=== PATIENT | male | born 1935 | race Caucasian/White ===

== ENCOUNTER → 2023-09-12 06:09 | Outpatient (REF) | payer MEDICARE, SELFPAY ==
[2023-09-12 10:13] LABS: ALT (SGPT) 40 U/L (0-50); AST (SGOT) 48 U/L (17-59)
[2023-09-12 10:44] LABS: TSH Reflex To Free T4 2.84 uIU/ml (0.47-4.68)
== END ==
LOC: HWLAB 06:09
PROVIDERS: ATTENDING PHYSICIAN Internal Medicine Cardiovascular Disease; FAMILY PHYSICIAN Family Medicine
DX: Z51.81 Encounter for therapeutic drug level monitoring (principal); I48.0 Paroxysmal atrial fibrillation
CPT/HCPCS: 36415; 71046; 84443; 84450; 84460

== ENCOUNTER → 2023-09-27 09:06 | Outpatient (REF) | payer MEDICARE, SELFPAY | LOC: HWRCS 09:06 | PROVIDERS: ATTENDING PHYSICIAN Internal Medicine Cardiovascular Disease; FAMILY PHYSICIAN Family Medicine | DX: R06.09 Other forms of dyspnea (principal); I35.0 Nonrheumatic aortic (valve) stenosis | CPT/HCPCS: 93306 ==

== ENCOUNTER → 2023-10-24 08:54 | Outpatient (REF) | payer MEDICARE, SELFPAY | LOC: RSP 08:54 | PROVIDERS: ATTENDING PHYSICIAN Internal Medicine Cardiovascular Disease; FAMILY PHYSICIAN Family Medicine | DX: Z51.81 Encounter for therapeutic drug level monitoring (principal); Z79.899 Other long term (current) drug therapy | CPT/HCPCS: 94727; 94729; 88738; 94010 ==

== ENCOUNTER → 2024-02-06 10:50 | Outpatient (REF) | payer MEDICARE, SELFPAY | LOC: HWRAD 10:50 | PROVIDERS: ATTENDING PHYSICIAN Family Medicine | DX: M25.552 Pain in left hip (principal) | CPT/HCPCS: 73502 ==

== ENCOUNTER 2024-03-30 11:22 | Emergency (ER) | payer MEDICARE, SELFPAY ==
[2024-03-30 11:27] VITALS: BP 108/69
--- NOTE | 2024-03-30 11:42 | EDRN ---
Pt states about 2 months ago was diagnosed w/ arthritis in his fit but past 2 days pt has had radiation of his pain down to his L foot from L lower back. Pt states he is also having tingling in his foot. Legs int sore and achy. Pt had cyst removed
in past from L 5.
--- NOTE | 2024-03-30 12:44 | ED.GENMED ---
History of Present Illness
General
Chief Complaint: Back Pain
Time Seen by Provider: 03/30/24 12:44
History of Present Illness
History of Present Illness:
TIME OF INITIAL ENCOUNTER: 12:45 PM
HPI: The patient presents with pain radiating down the left lower extremity. A few months ago, he had issues with plantar fasciitis to the right foot and developed left hip pain and x-ray showed that he had some arthritis of the left hip. He
called [facility] and was told that his symptoms down the left lower extremity are likely more related to the back as opposed to the hip. He has no back pain 'red flags'.
EXAM:
GENERAL: Well appearing in no significant distress
HEENT: Moist oral mucosa
ABDOMEN: Soft with no peritoneal signs, no tenderness
NEUROLOGIC: Excellent strength all extremities, no coordination deficits, excellent strength in an L5 and S1 distribution, no sensory deficit
PSYCHIATRIC: Appropriate mental status, normal insight and judgement
EXTREMITIES: Nontender, no edema, moves all extremities equally
SKIN: No rash, no lesions
NUMBER AND COMPLEXITY OF PROBLEMS ADDRESSED AT THE ENCOUNTER
� Chronic conditions affecting care: Atrial fibrillation, high blood pressure, hyperlipidemia, history of alcohol abuse
� Acute Exacerbation and/or Progression of Chronic Illness: This is an acute problem
� Differential Diagnosis includes: Sciatica, bursitis, osteoarthritis, no evidence for stroke as there is no upper extremity involvement and strength is excellent
AMOUNT AND/OR COMPLEXITY OF DATA TO BE REVIEWED AND ANALYZED
� I performed an independent evaluation of and my interpretation is:
EKG:
CT:
X-rays:
Laboratory Studies:
Other:
� Review of other/old records: I reviewed records, the patient had an echo in 2023 that showed an EF of 40 to 45%
� Clinical information was obtained by an independent historian: None needed
� Prescriptions/Medications Considered but not given:
� Further testing considered but not performed:
RISK OF COMPLICATIONS AND/OR MORBIDITY OR MORTALITY OF PATIENT MANAGEMENT
� Social determinants of health affecting care: Lives at home
� Discussion with other providers:
� Escalation of care including admission/observation vs risk of discharge considered: Will add steroids as I suspect that his symptoms are related to sciatica. Neurologically he is intact with excellent strength in the lower
extremities. He is to follow-up with orthopedics.
ANY OTHER UPDATES:
Past History
Past History
ED Past Medical History: Arrthythmia (Atrial fibrillation), HTN, Hypercholesterolemia, Hypothyroidism and Other (Pacemaker, right bundle branch block)
Social History
Tobacco: Former smoker
Alcohol: Binge drinker
Personal:
Living: with family
Employment: Retired
Family History
Family History: Other
Phy Exam
Physical Exam
Physical Exam:
See HPI
Course
Orders/Labs/Results
Orders:
Orders
03/30/24 13:07
Prednisone [Deltasone] 50 mg PO NOW STA
Vital Signs
Initial and Last Documented VS:
Initial Vital Signs
Temp Pulse Resp BP Pulse Ox
36.5 C 66 16 108/69 100
03/30/24 11:27 03/30/24 11:27 03/30/24 11:27 03/30/24 11:27 03/30/24 11:27
Last Documented Vital Signs
Temp Pulse Resp BP Pulse Ox
36.5 C 66 16 108/69 100
03/30/24 11:27 03/30/24 11:27 03/30/24 11:27 03/30/24 11:27 03/30/24 11:27
*Critical Care Note
Total Time (30-74mins, 75-104mins- exclusive of procedures): Not Applicable
ED Attending Note
-
Portions of this chart may have been created with voice recognition software.� Occasional wrong word or��sound alike� substitutions may have occurred due to the inherent limitations of voice recognition software.
Discharge Plan
Departure
Patient Disposition: Home (Routine Discharge)
Date of Disposition: 03/30/24
Time of Disposition: 13:07
Patient with high blood pressure during this ER visit?: Yes
Discharge Problem:
Sciatica
Instructions: Sciatica (DC)
Prescriptions:
New
prednisone 50 mg tablet
50 mg PO DAILY Qty: 4 0RF
No Action
ferrous sulfate [FeroSul] 325 MG tablet
325 mg PO QPM
fluticasone propionate 1 SPRAY spray,suspension
2 spray intranasal DAILY
acetaminophen 325 MG tablet
325 mg PO Q6HPRN PRN (Reason: mild pain) 0RF
fexofenadine [Manju] 180 MG tablet
180 mg PO DAILYPRN PRN (Reason: allergies )
levothyroxine 100 MCG tablet
75 mcg PO DAILY
garlic 1,000 MG capsule
1,000 mg PO DAILY
fish,bora,flax oils-om3,6,9no1 [Triple [place] 3-6-9] 400 MG capsule
2,000 mg PO BID
amiodarone [Pacerone] 200 MG tablet
200 mg PO QPM
ascorbic acid (vitamin C) [Vitamin C] 500 MG tablet
500 mg PO DAILY
folic acid 1 MG tablet
1 mg PO QPM
calcium carbonate-vitamin D3 [Oyster Shell Calcium-Vit D3] 500 MG tablet
1 tab PO DAILY
vitamin E (dl, acetate) 400 UNITS capsule
400 units PO DAILY
multivitamin with folic acid [Tab-A-Julissa] 1 TABLET tablet
1 tab PO DAILY
apixaban [Eliquis] 5 MG tablet
5 mg PO BID
atorvastatin 40 MG tablet
40 mg PO QPM Qty: 90 3RF
Rx Instructions:
Please note dose increase
clopidogrel 75 MG tablet
75 mg PO DAILY Qty: 90 3RF
pantoprazole 40 MG tablet,delayed release (DR/EC)
40 mg PO DAILY Qty: 90 3RF
aspirin 81 MG tablet,chewable
81 mg PO DAILY 0RF
Rx Instructions:
Take for 1 week ONLY then STOP
nitroglycerin 0.4 MG tablet, sublingual
0.4 mg sublingual [id number] PRN (Reason: chest pain) Qty: 25 2RF
Referrals:
Jose Luis Almendarez MD [Active] -
Bettye Beltre DO [Family Provider] -
Activity Restrictions/Additional Instructions:
Your symptoms very well could be related to sciatica (nerve impingement coming from the low back). We can try steroids. I sent a prescription to the [facility] in [place] on [address]. I recommend you call [facility] again to try to arrange
close follow-up. Next dose of steroids tomorrow.
Interventions
Interventions:
*Risk Screen - Suicide Last Done: 03/30/24 11:44
*General Assessment Last Done: 03/30/24 11:44
*Neglect/Abuse Screening Last Done: 03/30/24 11:44
ED- Fall Risk Assessment Last Done: 03/30/24 11:44
*ED COVID-19 Vaccine History Last Done: 03/30/24 11:44
ED-Musculoskeletal Assessment Last Done: 03/30/24 11:44
Discharge Date and Time
Print Language: VINCENTIAN
[2024-03-30] MEDS: DELTASONE 50 MG PO (13:21)
== END 2024-03-30 13:30 | disposition home or self-care (01) ==
LOC: EMR 11:22
PROVIDERS: EMERGENCY PHYSICIAN Emergency Medicine; FAMILY PHYSICIAN Family Medicine
DX: M54.32 Sciatica, left side (principal); I10 Essential (primary) hypertension; I48.91 Unspecified atrial fibrillation; E78.5 Hyperlipidemia, unspecified; Z87.891 Personal history of nicotine dependence
CPT/HCPCS: 99283

== ENCOUNTER → 2024-05-04 06:08 | Outpatient (REF) | payer MEDICARE, SELFPAY | LOC: HWRAD 06:08 | PROVIDERS: ATTENDING PHYSICIAN Family Medicine | DX: Z95.0 Presence of cardiac pacemaker (principal) | CPT/HCPCS: 71046 ==

== ENCOUNTER → 2024-07-14 06:15 | Outpatient (REF) | payer MEDICARE, OTHER, SELFPAY ==
[2024-07-14 09:33] LABS: Hematocrit 38.1 % (39.0-52.0); Hemoglobin 12.8 g/dL (13.0-18.0); Mean Corp Hgb Conc. 33.6 g/dL (33.0-37.0); Mean Corpuscular Hgb 33.3 pg (27.0-31.0); Mean Corpuscular Volume 99.2 fL (80.0-94.0); Mean Platelet Volume 10.1 fL (7.4-10.4); Platelet Count 239 10^3/uL (130-400); Red Blood Cell Count 3.84 10^6/uL (4.70-6.10); Red Cell Dist. Width 14.5 % (11.5-14.5); White Blood Cell Count 4.4 10^3/uL (4.8-10.8)
[2024-07-14 10:31] LABS: ALT (SGPT) 35 U/L (0-50); AST (SGOT) 43 U/L (17-59); Alkaline Phosphatase 88 U/L (38-126); Blood Urea Nitrogen 24 mg/dl (9-20); Calcium 9.6 mg/dl (8.4-10.2); Carbon Dioxide 29 mmol/L (22-30); Chloride 100 mmol/L (98-107); Glucose 90 mg/dl (70-99); Potassium 4.6 mmol/L (3.5-5.1); Sodium 135 mmol/L (135-145); Total Bilirubin 0.8 mg/dl (0.2-1.3); Total Protein 6.3 g/dl (6.3-8.2); eGFR > 60.00
[2024-07-14 10:54] LABS: TSH Reflex To Free T4 1.04 uIU/ml (0.47-4.68)
== END ==
LOC: HWLAB 06:15
PROVIDERS: ATTENDING PHYSICIAN Internal Medicine Cardiovascular Disease; FAMILY PHYSICIAN Family Medicine
DX: I48.0 Paroxysmal atrial fibrillation (principal); Z51.81 Encounter for therapeutic drug level monitoring
CPT/HCPCS: 36415; 80053; 84443; 85027

== ENCOUNTER → 2024-09-01 13:56 | Outpatient (REF) | payer MEDICARE, OTHER, SELFPAY | LOC: HWRCS 13:56 | PROVIDERS: ATTENDING PHYSICIAN Student in an Organized Health Care Education/Training Program; FAMILY PHYSICIAN Family Medicine; REFERRING PHYSICIAN Internal Medicine Cardiovascular Disease | DX: I50.20 Unspecified systolic (congestive) heart failure (principal) | CPT/HCPCS: 93306 ==

== ENCOUNTER 2024-09-17 20:28 | Inpatient (IN) | payer MEDICARE, OTHER, SELFPAY ==
[2024-09-17] VITALS (12 sets, daily range): BP systolic 151–184; BP diastolic 76–111; PULSE 2; BMI 35.6; BMI 34.4
[2024-09-17 18:48] LABS: % Basophils 0.1 % (0-2); % Immature Granulocytes 0.6 % (0-0.5); % Lymphocytes 20.3 % (20.5-51.1); % Monocytes 7.4 % (1.7-9.3); % Neutrophils 71.6 % (42.2-75.2); Absolute Immature Granulocytes 0.1 10^3/uL (0-0.05); Absolute Lymphocytes 1.9 10^3/uL (1.2-3.4); Absolute Monocytes 0.7 10^3/uL (0.1-0.6); Absolute Neutrophils 6.8 10^3/uL (1.4-6.5); Hematocrit 32.8 % (39.0-52.0); Hemoglobin 10.9 g/dL (13.0-18.0); Mean Corp Hgb Conc. 33.2 g/dL (33.0-37.0); Mean Corpuscular Hgb 33.5 pg (27.0-31.0); Mean Corpuscular Volume 100.9 fL (80.0-94.0); Nucleated Red Blood Cells % 0 % (-); Platelet Count 230 10^3/uL (130-400); Red Blood Cell Count 3.25 10^6/uL (4.70-6.10); Red Cell Dist. Width 15.5 % (11.5-14.5); White Blood Cell Count 9.5 10^3/uL (4.8-10.8)
[2024-09-17 18:57] LABS: INR 1.09; PT 14.7 Sec (11.4-14.6)
[2024-09-17 19:01] LABS: ALT (SGPT) 42 U/L (0-50); AST (SGOT) 41 U/L (17-59); Albumin 4.1 g/dl (3.5-5.0); Alkaline Phosphatase 73 U/L (38-126); Blood Urea Nitrogen 40 mg/dl (9-20); Calcium 9.1 mg/dl (8.4-10.2); Carbon Dioxide 22 mmol/L (22-30); Chloride 102 mmol/L (98-107); Estimated Creatinine Clearance 37 ml/min; Glucose 144 mg/dl (70-99); Potassium 5.2 mmol/L (3.5-5.1); Sodium 132 mmol/L (135-145); Total Protein 6.3 g/dl (6.3-8.2); eGFR 53.17
--- NOTE | 2024-09-17 19:11 | ED.GENMED ---
History of Present Illness
General
Chief Complaint: Breathing Problem
Source: patient and family
Exam Limitations: none
Time Seen by Provider: 09/17/24 18:43
History of Present Illness
History of Present Illness:
88-year-old male progressive shortness of breath since hip surgery on Saturday. Had an outpatient CT scan done earlier today with unknown result. Some mild cough no fever no other complaints. Patient held his Eliquis for the procedure and restarted
it at half dose.
Past History
Past History
ED Past Medical History: Arrthythmia (Atrial fibrillation), HTN, Hypercholesterolemia, Hypothyroidism and Other (Pacemaker, right bundle branch block)
Social History
Tobacco: Former smoker
Alcohol: Binge drinker
Personal:
Living: with family
Employment: Retired
Family History
Family History: Other
Review of Systems
Review of Systems
All Other Systems: Not applicable
Constitutional: Denies fever or chills
Respiratory: Reports trouble breathing
Cardiac: Denies chest pain or syncope
Phy Exam
Physical Exam
Physical Exam:
GENERAL: Alert and oriented. Mildly tachypneic at rest. Borderline pulse ox.
EYE: Orbits normal.
NECK: Supple, no significant adenopathy.
ENT: Pharynx without erythema
CARDIAC: Regular rate and rhythm moderate midsystolic murmur. Pacemaker left upper chest wall
LUNGS: Mild diffuse expiratory wheezing with basilar rales
ABDOMEN: Soft, without focal tenderness or distention
NEUROLOGICAL: Alert and oriented , grossly non-focal
SKIN: Warm and dry, no rash or lesion, no discoloration, skin intact.
MUSCULOSKELETAL: Moderate pitting edema left greater than right. Well-healing left hip
PSYCH: Normal and appropriate interaction.
Scores
Heart Failure Risk
Heart Failure Risk Score: Yes
History of Stroke or TIA: No
History of intubation for respiratory distress: No
Heart rate on ED arrival >/= 110: No
SaO2 <90% on arrival on room air: Yes
HR >/=110 during 3min walk test (or too ill to perform test): Yes
ECG has acute ischemic changes: No
Urea >/=12mmol/L (BUN 33.6mg/dL): Yes
Serum CO2>/=35mmol/L: No
Troponin I or T elevated to SC Level (0.4mg/dL): No
NT-proBNP >/=5,000ng/L (5,000pg/ml): Yes
HF Risk Score: 5
Admission Status: VERY HIGH RISK 39.8% Consider admission to hospital
Course
Orders/Labs/Results
Orders:
Orders
09/17/24 18:40
Electrocardiogram (*1) Urgent
Reason for Study: Chest Pain
EKG- Treatment ONCE
IV Insert/Care/Rem.- Treatment PRN
09/17/24 18:41
Complete Blood Count/With Diff Urgent
Comprehensive Metabolic Panel Urgent
NT-proBNP Urgent
Comment: ADDON
Prothrombin Time Urgent
Troponin I Urgent
09/17/24 18:56
IV Insert/Care/Rem.- Treatment PRN
CR Chest Portable - 1 View Urgent
Comment:
Reason For Exam: sob
Reason Study Needs to be Portable: Patient Unstable
09/17/24 18:57
Add On- LAB Urgent
Tests Added?: probnp
09/17/24 19:16
COVID-19 Antigen Urgent
Source: Nasal Swab
Influenza A+B Rapid Molecular Urgent
MARIELA Source: Nasal Swab
Specimen Description:
09/17/24 19:23
Furosemide [Lasix] 40 mg IV NOW STA
Ipratropium/Albuterol Sulfate [Duoneb] 3 ml INH R NOW ONE
09/17/24 19:37
Bipap [RESP] Urgent
Patient to use own unit?: No
Inspiratory Pressure (cm H2O): 10
Expiratory Pressure (cm H2O): 5
09/17/24 20:16
Admit/Transfer Patient As Directed
Co-Sign Provider:
Level of Care: Inpatient admission
Assign to:: IMU- Intermediate Care
Physician / Group: [email or web address]
Diagnosis: Acute HF proabaly acute decompensated HFrEF
Reason for Hospitalization: Acute HF probably acute decompensated HFrEF :
Expected length of stay greater than two midnights?: Yes
ELOS- Estimated Length of Stay in days: 3
I certify the patient meets the requirements for IP care: Yes
09/17/24 20:19
Code Status As Directed
Resuscitation Status: Full Code
Abnormal Lab Results
09/17/24
18:41
RBC 3.25 L 10^6/uL
(4.70-6.10)
Hgb 10.9 L g/dL
(13.0-18.0)
Hct 32.8 L %
(39.0-52.0)
MCV 100.9 H fL
(80.0-94.0)
MCH 33.5 H pg
(27.0-31.0)
RDW 15.5 H %
(11.5-14.5)
Abs Immat Gran (auto) 0.1 H 10^3/uL
(0-0.05)
Absolute Neuts (auto) 6.8 H 10^3/uL
(1.4-6.5)
Absolute Monos (auto) 0.7 H 10^3/uL
(0.1-0.6)
Immature Gran % 0.6 H %
(0-0.5)
Lymphocytes % 20.3 L %
(20.5-51.1)
PT 14.7 H Sec
(11.4-14.6)
Sodium 132 L mmol/L
(135-145)
Potassium 5.2 H mmol/L
(3.5-5.1)
BUN 40 H mg/dl
(9-20)
Glucose 144 H mg/dl
(70-99)
09/17/24 18:41
09/17/24 18:41
Vital Signs
Initial and Last Documented VS:
Initial Vital Signs
BP
171/98
09/17/24 18:40
Last Documented Vital Signs
Temp Pulse Resp BP Pulse Ox
97.8 F 77 23 165/94 93
09/17/24 18:44 09/17/24 20:00 09/17/24 20:00 09/17/24 20:00 09/17/24 20:00
*Radiology
Radiology exam reviewed: preliminary read by ED provider (CHF)
*EKG
Interpreted by ED Provider?: Yes
Interpretation: abnormal
Comparison EKG: changes noted
Heart Rate: 85
Rate: normal
Rhythm: other (Atrial sensed ventricular paced)
*Layout Inspector Interpretation
Rate: normal
Interpretation: normal
Heart Rate: 88
Rhythm: other (Atrial sensed ventricular paced)
*Critical Care Note
Total Time (30-74mins, 75-104mins- exclusive of procedures): 45
Update Note
Update Note:
1934... Calls placed to the radiology center, [facility]. Our local [facility] orthopedist was phenomenal hunting down the patient's CT scan result. No pulmonary emboli. Pulmonary edema. All consistent with our
clinical findings x-ray and proBNP. Dose of diuretic was given. Discussed with cardiology. Hold on nitroglycerin with moderate . Will add BiPAP
ED Attending Note
-
Portions of this chart may have been created with voice recognition software.� Occasional wrong word or��sound alike� substitutions may have occurred due to the inherent limitations of voice recognition software.
Discharge Plan
Departure
Patient Disposition: Admit
Date of Disposition: 09/17/24
Time of Disposition: 19:31
Presentation/result/management discussed w/ accepting MD/DO: Cardiology
Discharge Problem:
Respiratory distress/pulmonary edema, Recent hip replacement, Moderate aortic stenosis, Known decreased ejection fraction
Interventions
Interventions:
*Risk Screen - Suicide Last Done: 09/17/24 18:44
*General Assessment Last Done: 09/17/24 18:44
*Neglect/Abuse Screening Last Done: 09/17/24 18:44
*ED COVID-19 Vaccine History Last Done: 09/17/24 19:02
ED- Cardiac Assessment Last Done: 09/17/24 19:01
ED- Pulmonary Assessment Last Done: 09/17/24 19:01
[2024-09-17 19:13] LABS: Troponin I 0.023 ng/ml
[2024-09-17 19:21] LABS: NT-proBNP 22900 pg/ml
[2024-09-17] MEDS: LASIX 40 MG IV (19:27)
[2024-09-17] MEDS: DUONEB 3 ML INH (19:27)
[2024-09-17 19:38] LABS: COVID-19 Antigen Negative (Negative)
--- NOTE | 2024-09-17 19:50 | HPS.HSE ---
Family Physician
-
Family Physician:
Chief Complaint
-
acute Resp distress
History of Present Illness
HPI:
88M from home Former smoker, BiB EMS with HX LVEF 35-40% , Prx AF, RBBB, PPM implant, HTN, Hypercholesterolemia, Hypothyroidism arrived to ER for acute Resp distress, tachypneic, POx 92% on RA.
ER Tx:
Pending CXR
Pending proBNP
BiPAP
IV Lasix 40 x 1
DuoNeb x 1
ROS:
Denied CP, palpitation.
Medical History
Past Medical History
Past Medical History: Reports Arrhythmia (Prx AF on chr Eliquis and amiodarone ), HTN, Hypercholesterolemia, Hypothyroidism and Other (Rt BBB, )
Additional Past Medical History:
09/01/24 TTE
Moderately reduced left ventricular systolic function. Global hypokinesis.
Left ventricular ejection fraction is 35-40%.
Stage II diastolic dysfunction suggestive of abnormal relaxation and increased filling pressures.
Moderate mitral regurgitation.
Moderate aortic stenosis. Mild aortic regurgitation.
Past Surgical History: Reports Cardiac (Medtronic PPM implant 05/25/2019.)
Social History
Tobacco: Former Smoker
Alcohol: Binge drinker
Personal:
Living: With Family
Family History
Family History: Not pertinent
Allergies / Home Medications
Allergies reflects when Allergies were last updated in [facility].
Home Medications with original date entered in [facility]
Allergy/Medication List:
Allergies
Allergy/AdvReac Type Severity Reaction Status Date / Time
hydrocodone Allergy TAKEN FROM Verified 09/17/24 18:42
MD ORDER
SHEET
05-22-2019
Penicillins Allergy Unknown Verified 09/17/24 18:42
pollen extracts Allergy sneezing, Verified 09/17/24 18:42
coughing,
runny nose
simvastatin Allergy TAKEN FROM Verified 09/17/24 18:42
MD ORDER
SHEET
05-22-2019
ground spores Allergy asthma Uncoded 09/17/24 18:42
Home Medications
ferrous sulfate 325 mg (65 mg iron) tablet (FeroSul) 325 mg PO QPM Supplement 05/02/18
fluticasone propionate 50 mcg/actuation nasal spray,suspension 2 spray intranasal DAILY Allergies 05/02/18
acetaminophen 325 mg tablet 325 mg PO Q6HPRN PRN mild pain 05/07/18
amiodarone 200 mg tablet (Pacerone) 200 mg PO QPM Atrial fibrillation 05/25/19
fexofenadine 180 mg tablet (Manju) 180 mg PO DAILYPRN PRN allergies 05/25/19
fish,borage,flaxseed oil-omega 3,6,9 no.1 400 mg-400 mg-400 mg capsule (Triple [place] 3-6-9) 2,000 mg PO BID Supplement 05/25/19
garlic 1,000 mg capsule 1,000 mg PO DAILY Supplement 05/25/19
levothyroxine 100 mcg tablet 75 mcg PO DAILY Thyroid 05/25/19
apixaban 5 mg tablet (Eliquis) 5 mg PO BID Blood clot prevention/tx 10/26/19
ascorbic acid (vitamin C) 500 mg tablet (Vitamin C) 500 mg PO DAILY Supplement 10/26/19
calcium 500 mg (as carbonate)-vitamin D3 5 mcg (200 unit) tablet (Oyster Shell Calcium-Vitamin D3) 1 tab PO DAILY Supplement/Bone health 10/26/19
folic acid 1 mg tablet 1 mg PO QPM Supplement 10/26/19
multivitamin with folic acid 400 mcg tablet (Tab-A-Julissa) 1 tab PO DAILY Supplement 10/26/19
vitamin E (dl, acetate) 180 mg (400 unit) capsule 400 units PO DAILY Supplement 10/26/19
aspirin 81 mg chewable tablet 81 mg PO DAILY 10/27/19
atorvastatin 40 mg tablet 40 mg PO QPM #90 tabs 06/30/20
clopidogrell 75 mg tablet 75 mg PO DAILY #90 tabs 10/27/19
nitroglycerin 0.4 mg sublingual tablet 0.4 mg sublingual [id number] PRN chest pain #25 tabs 10/27/19
pantoprazole 40 mg tablet,delayed release 40 mg PO DAILY #90 tabs 10/27/19
prednisone 50 mg tablet 50 mg PO DAILY #4 tabs 03/30/24
Review of Systems
-
Constitutional: Reports No Symptoms
EENT: Reports No Symptoms
Respiratory: Reports See HPI
Cardiac: Reports See HPI
Abdomen/GI: Reports No Symptoms
: Reports No Symptoms
Musculoskeletal: Reports No Symptoms
Skin: Reports No Symptoms
Neurological: Reports No Symptoms
Endocrine: Reports No Symptoms
Hematologic/Lymphatic: Reports No Symptoms
Psych: Reports No Symptoms
Physical Exam
Vital Signs
Vital Signs
Temp Pulse Resp BP Pulse Ox
97.8 F 79 21 172/96 95
09/17/24 18:44 09/17/24 19:30 09/17/24 19:30 09/17/24 19:27 09/17/24 19:30
Physical Exam
General: Well Developed, Well Nourished and No Apparent Distress
HEENT: NormoCephalic, Moist mucous membranes and Atraumatic
Respiratory: Clear
Cardiac: S1/S2 and Regular Rhythm; No Murmur or Rub
GI: Soft, Non Tender, Non Distended and Normal Bowel Sounds; No Organomegaly
Rectal: Deferred by Provider
Musculoskeletal: No Clubbing, No Cyanosis and No Edema
Skin: No Rash
Neuro: Nonfocal/grossly intact
Laboratory Results
-
09/17/24 18:41
09/17/24 18:41
Laboratory Results
PT 14.7 Sec (11.4-14.6) H 09/17/24 18:41
INR 1.09 09/17/24 18:41
Total Bilirubin 1.0 mg/dl (0.2-1.3) 09/17/24 18:41
AST 41 U/L (17-59) 09/17/24 18:41
ALT 42 U/L (0-50) 09/17/24 18:41
Alkaline Phosphatase 73 U/L (38-126) 09/17/24 18:41
Troponin I 0.023 ng/ml 09/17/24 18:41
Impression/Plan
-
Labs
07/14/24 09/17/24
06 18:41
WBC 4.4 L 9.5
Hgb 12.8 L 10.9 L
Plt Count 239 230
INR 1.09
Sodium 132 L
Potassium 5.2 H
BUN 24 H 40 H
Creatinine 1.0 1.3
eGFR > 60.00 53.17
Troponin I 0.023
[id number] Pept [id number]
Portable CXR report pending
Recent CT [facility] from ER record
- No pulmonary emboli.
- Pulmonary edema.
09/01/24 TTE
Moderately reduced left ventricular systolic function. Global hypokinesis.
Left ventricular ejection fraction is 35-40%.
Stage II diastolic dysfunction suggestive of abnormal relaxation and increased filling pressures.
Moderate mitral regurgitation.
Moderate aortic stenosis. Mild aortic regurgitation.
Compared to the prior echo on 09/27/2023, LVEF is slightly decreased from 40 to
45% to 35 to 40%. There is now moderate mitral regurgitation.
Last admission to [facility] card service : 05/25/2019 - 05/26/2019
DISCHARGE DIAGNOSIS:
1. 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
2. 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
3. Right bundle branch block.
4. Paroxysmal atrial fibrillation on chronic oral anticoagulation.
5. Hypertension.
6. Hypothyroidism.
7. Hyperlipidemia.
ASSESSMENT & PLAN
Acute HF probably acute decompensated HFrEF : elevated proBNP - improved with IV Lasix and BiPAP
Patient is unsure of prior HX CHF
Suspect expanded Volume s/p Lt THR as of 09/13/24
Recent TTE LVEF 35-40 as of 09/01/24
Underlying Stage II diastolic dysfunction s
Valvular insufficiency : Moderate MR, Moderate , Mild AR
- c/w BiPAP - wean off as tolerated
- IV Lasix 40 daily
- FU daily BMP, wt and IOs
- c/w COIL MACHINE SUPERVISOR Metoprolol XL 25 mg daily
- GDMT : on Empagliflozin
- CBC Card consult ( P Card : Dr Leach )
Recent Lt THR as of 09/13/[address] [facility] , [facility]
- PT when acute HF is stable
Atrial-sensed ventricular-paced rhythm
HX Paroxysmal atrial fibrillation
- on [employer]IL MACHINE SUPERVISOR chronic Eliquis and Amiodarone
Benign Hypertension.
- c/w Metoprolol XL
Hypothyroidism
- on COIL MACHINE SUPERVISOR LT4
Hyperlipidemia
- on COIL MACHINE SUPERVISOR Atorvastatin
DVT Px: on COIL MACHINE SUPERVISOR Eliquis
Full code
IP TLM
--- NOTE | 2024-09-17 23:01 | PTCARENOTE ---
Rec'd pt as new admission from ED RN. Pt arrived to unit on 2L NC, denies SOB, SaO2 98%. Denies pain, discomfort at this time. BP elevated 178/93 on RUE. ORCHESTRATOR contacted regarding HTN. Educated pt on use of call aponte. Pt admits to daily alcohol use
with last drink yesterday 09/16, ORCHESTRATOR notified, MSAS score 2 at this time. Care ongoing.
[2024-09-18] VITALS (17 sets, daily range): BP systolic 109–176; BP diastolic 56–91; PULSE 2–85; O2SAT 98; BMI 34.4
[2024-09-18] MEDS: SYNTHROID 75 MCG PO (04:57)
[2024-09-18 05:35] LABS: ALT (SGPT) 39 U/L (0-50); AST (SGOT) 36 U/L (17-59); Albumin 3.8 g/dl (3.5-5.0); Alkaline Phosphatase 67 U/L (38-126); Blood Urea Nitrogen 39 mg/dl (9-20); Calcium 9.5 mg/dl (8.4-10.2); Carbon Dioxide 30 mmol/L (22-30); Chloride 103 mmol/L (98-107); Estimated Creatinine Clearance 39 ml/min; Glucose 103 mg/dl (70-99); Potassium 4.5 mmol/L (3.5-5.1); Sodium 136 mmol/L (135-145); Total Bilirubin 0.9 mg/dl (0.2-1.3); eGFR 58.53
--- NOTE | 2024-09-18 08:07 | CON.CAR ---
Addendum entered and electronically signed by Christiano Aleman MD 09/18/24 10:32:
I saw and examined the patient.
The NANOFABRICATION SPECIALIST's note was reviewed and I agree with the note.
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
in 2019, PAF who presented to the ER with shortness of breath and he also has increased lower extremity edema he recently had hip surgery and states he noticed more issues with shortness of breath since the surgery. Presentation consistent with
acute on chronic heart failure with reduced ejection fraction. Appears to be in sinus rhythm. Apparently in the past GDMT limited by blood pressure.
- Diuresis with IV Lasix with close monitoring of labs and blood pressure
- Monitor daily weights.
-Remains on anticoagulation with Eliquis for history of A-fib
-Continue amiodarone
- Will need standing dose of diuretic at discharge.
Original Note:
Consultation
Consultation Request
Date/Time Consultation Requested: 09/17/24 9:50p
Date/Time Consultation Performed: 09/18/24 8a
Requesting Provider: Dr. Jorge
Performing Provider: EVELYN Mccray for Dr. Aleman
Reason for Consultation: acute HFrEF
Medical History
-
Chief Complaint: sob
History of Present Illness:
Mr. Thompson is an 88-year-old male with paroxysmal atrial fibrillation on Eliquis, hypertension, HFrEF (35-40%), moderate aortic stenosis with mild aortic regurgitation, moderate mitral regurgitation, s/p Medtronic dual chamber permanent pacemaker
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 His CXR shows acute pulmonary edema, proBNP 22,900, so we are consulted for acute HFrEF. He
underwent left LIDIA at [facility] 09/14/24 and was discharged home 09/15/24. He is not on diuretics at home. SOB improved with IV Lasix 40mg daily last night and now on Bipap as well. Device interrogation showed 100% ventricular pacing [facility] in the ER 09/17/24.
Past Medical History
Past Medical History: Other (as above)
Past Surgical History: Other (as above)
Social History
Tobacco: Former Smoker
Alcohol: Former (quit 2017)
Personal:
Living: With Family
Employment: Retired
Family History
Family History: Early CAD (father age 52 ?CAD)
Allergies / Home Medications
Allergy/AdvReac Type Severity Reaction Status Date / Time
hydrocodone Allergy TAKEN FROM Verified 09/17/24 18:42
MD ORDER
SHEET
05-22-2019
Penicillins Allergy Unknown Verified 09/17/24 18:42
pollen extracts Allergy sneezing, Verified 09/17/24 18:42
coughing,
runny nose
simvastatin Allergy TAKEN FROM Verified 09/17/24 18:42
MD ORDER
SHEET
05-22-2019
ground spores Allergy asthma Uncoded 09/17/24 18:42
�Medication �Instructions �Recorded �Confirmed �Type
amiodarone 200 mg tablet (Pacerone) 200 mg PO QPM Atrial fibrillation 05/25/19 09/17/24 History
apixaban 5 mg tablet (Eliquis) 5 mg PO BID Blood clot 10/26/19 09/17/24 History
prevention/tx
atorvastatin 40 mg tablet 40 mg PO QPM #90 tabs 10/27/19 09/17/24 Rx
pantoprazole 40 mg tablet,delayed 40 mg PO DAILY #90 tabs 10/27/19 09/17/24 Rx
release
acetaminophen 500 mg tablet 1,000 mg PO TID 09/17/24 09/17/24 History
(Tylenol Extra Strength)
celecoxib 200 mg capsule 200 mg PO DAILY 09/17/24 09/17/24 History
empagliflozin 25 mg tablet 12.5 mg PO DAILY 09/17/24 09/17/24 History
levothyroxine 75 mcg tablet 75 mcg PO DAILY 09/17/24 09/17/24 History
(Synthroid)
methylprednisolone 4 mg tablets in 0 mg PO PER PKG DIR 09/17/24 09/17/24 History
a dose pack (Medrol (Twan))
metoprolol succinate 25 mg 25 mg PO DAILY 09/17/24 09/17/24 History
tablet,extended release 24 hr
(Toprol XL)
oxycodone 5 mg tablet 5 mg PO Q4HPRN PRN severe pains 09/17/24 09/17/24 History
Review of Systems
-
History Source: Patient
All other systems: Negative unless noted
Physical Exam
Vital Signs
Temp Pulse Resp BP Pulse Ox
97.7 F 84 22 155/85 96
09/18/24 03:00 09/18/24 06:15 09/18/24 06:15 09/18/24 06:15 09/18/24 06:00
Lab Results
09/17/24 18:41
09/18/24 04:53
Troponin I 0.023 ng/ml 09/17/24 18:41
Idn-C-Viqywfxspvk Pept 94080 pg/ml 09/17/24 18:41
Physical Exam
General: Well Developed and Other (obese)
HEENT: Normocephalic
Respiratory: Crackles (bibasilar) and Other (on bipap)
Cardiac: S1/S2, Regular Rhythm and Peripheral Edema (+1-2 pitting edema b/l LE)
Breast: Deferred by me
GI: Soft, Non Tender, Non Distended and Normal Bowel Sounds
Rectal: Deferred by Provider
Genito-urinary: No Costovertebral Tender
Musculoskeletal: No Clubbing and No Cyanosis
Skin: Warm and Dry
Neuro: AO x 3
Psych: Calm
Impression / Plan
-
HFrEF - acute on chronic.
- agree with diuresis IV Lasix.
- monitor renal function, lytes, daily weights, I&Os.
- weight on admit 188 lbs (10-12 lbs more than typical weight), down to 181 today.
- HF educator.
ICM - EF 35-40% on echo 09/01/24.
- IV diuresis as above, monitoring labs and daily weights.
- tolerating Toprol and Farxiga, previously GDMT limited by hypotension.
- will investigate cost of Entresto.
- likely need diuretics at discharge.
CAD - stable w/o angina.
- s/p PCI with MITZI to RCA in 09/2019.
- continue medical therapy.
Afib - paroxysmal.
- V paced on tele and device checks, no Afib.
- continue Amiodarone and Toprol.
- OAC with Eliquis.
- [id number] VASC score is 5.
PPM - DC Medtronic device.
- stable with normal function, V paced.
- followed in our outpatient device clinic.
Valvular heart disease - moderate , moderate MR, mild AR on echo 09/01/24.
- diuresis as above.
Data Reviewed
-
EKG: Tracing Personally Visualized and interpreted (A sensed V paced 85 bpm)
Radiology: Report Reviewed by me (CXR: Interval development of diffusely increased interstitial markings, highly suggestive of interstitial pulmonary edema pattern.)
Medical Tests (Nuc Med, Echo etc): Report Reviewed by me (echo 09/01/24: EF 35-40%, moderate , mild AR, moderate MR.)
Labs: Labs Reviewed by me
Old Records: Reviewed
[2024-09-18] MEDS: LASIX 40 MG IV (09:12)
[2024-09-18] MEDS: TOPROL XL 25 MG PO (09:13)
[2024-09-18] MEDS: FARXIGA 10 MG PO (09:13)
[2024-09-18] MEDS: ELIQUIS 5 MG PO ×2 (09:13→19:35)
[2024-09-18] MEDS: PROTONIX 40 MG PO (09:14)
--- NOTE | 2024-09-18 11:12 | CM ---
Met with patient at bedside; initial assessment and Case Management Consults completed
Advance Directive packet provided; patient reported that he was prescribed Entresto in the past; had a reaction and discontinued; [facility]; out of pocket cost for Entresto was $11.00
Pharmacy verified: [facility], [facility]; continuous prescriptions filled by [place] (copy of [facility] card placed on the chart)
Patient and live in a one floor home; 4 steps to enter; bath has low tub w/shower
PLOF: reported he is independent with personal care; ambulates with rolling walker; has a cane if needed in the future; driving currently restricted
NO other DME
NO SNF or Home Health utilization history; no agency preference if home health is recommended when discharged; does not think he will need HH
will transport home
Plan: Discharge to home when medically stable; CM will monitor for needs/services and support accordingly
--- NOTE | 2024-09-18 11:46 | W.PN.HOSP.TC ---
Today's Communication/Plan
-
Continue with aggressive diuresis
Monitor blood pressure
Monitor creatinine
Wean oxygen as tolerated
PT evaluation
Assessment / Plan
Assessment / Plan
Acute on chronic HFrEF
Valvular disease with moderate aortic stenosis and mitral regurgitation
Suspect expanded Volume s/p Lt THR as of 09/13/24
Recent TTE LVEF 35-40 as of 09/01/24
- c/w BiPAP as needed if needed
- IV Lasix 40 daily
- FU daily BMP, wt and IOs
- c/w EGG SORTER Metoprolol XL 25 mg daily
- GDMT : on Empagliflozin
-Probably will require diuretics standing dose at discharge
- cardiology following
CAD
-Status post MITZI to RCA
-Continue with goal-directed medical therapy
Recent Lt THR as of 09/13/24 @ [facility] , [facility]
- PT eval. On Eliquis for DVT prophylaxis
Paroxysmal atrial fibrillation status post pacemaker
- on EGG SORTER chronic Eliquis and Amiodarone
- Status post interrogation with normal function per cardiology
Benign Hypertension.
- c/w Metoprolol XL
Hypothyroidism
- on EGG SORTER LT4
Hyperlipidemia
- on EGG SORTER Atorvastatin
DVT Px: on EGG SORTER Eliquis
Full code
Anticipated Discharge: > 48 hours
Subjective/Interval History
-
Date of Service: September 18, 2024
States of shortness of breath
States of worsening lower extremity edema
Taken off BiPAP and currently on nasal cannula
Objective Data
-
Labs:
Laboratory Results
09/18/24
04:53
Sodium 136
Potassium 4.5
Chloride 103
Carbon Dioxide 30
BUN 39 H
Creatinine 1.2
Glucose 103 H
Calcium 9.5
Total Bilirubin 0.9
AST 36
ALT 39
Alkaline Phosphatase 67
Vital Signs:
Vital Signs
Temp Pulse Resp BP Pulse Ox
98.1 F 86 24 155/68 98
09/18/24 07:18 09/18/24 10:46 09/18/24 10:46 09/18/24 10:46 09/18/24 11:28
I&O
09/17/24 09/18/24 09/19/24
06:59 06:59 06:59
Output Total 1949
Balance -1949
Physical Exam
-
General: Well Developed and No Apparent Distress
HEENT: Normocephalic, Atraumatic and Moist Mucous Membranes
Respiratory: Clear to Auscultation
Cardiac: Regular Rhythm and S1/S2; Negative Murmur, Rub or Gallop
GI: Soft, Nontender, Nondistended and Normal Bowel Sounds; Negative Organomegaly
Rectal: Deferred by Provider
Musculoskeletal: No Clubbing, No Cyanosis, Edema, Right Lower Extrem, Edema, Left Lower Extrem and Other (Left hip Aquacel dressing noted)
Skin: Negative Rash
Neuro: Awake and Nonfocal/Grossly Intact
Psych: Calm
--- NOTE | 2024-09-18 12:05 | PN.CDI ---
CDI
- -
CDI:
Physician Documentation Request
Admit Date: 09/17/24 20:28
Dear Doctor Tanja,
Patient presented to ED with progressive shortness of breath.
Patient was on bipap.
ED record discharge problem list 'respiratory distress'
Presenting respiratory rate documented between 17-16
Please clarify which of the following accurately represents the patient's respiratory status:
Acute respiratory failure- please indicate type
Hypoxia
Other
Additional information for Respiratory Failure:
Recognized criteria for Respiratory Failure (Source: [facility] Hospitalist Feb 2013)
ABGs: (1 or more) Symptoms Please indicate type if known
1. p)2 <60 or RA SPO2 <91% on RA 1. Tachypnea, SOB, dyspnea Hypoxic
2. pCO2 50 and pH <7.35 2. Use of accessory muscles Hypercapnic
3. pO2 decrease of pCO2 increase by 3. Pallor or cyanosis Hypoxic and Hypercapnic
10 mmHg from baseline if known 4. Anxiety or restlessness Unable to determine
5. Unable to speak in full sentences
Supplemental O2 of > 40% (5LPM) Intubation is not required
Use of terms such as suspected, likely, concern for, or probable (associated with a specific diagnosis that is being evaluated, monitored, or treated as if it exists) are acceptable and can be coded in the inpatient setting, when documented at the
time of discharge.
Thank you,
Karlene Farris RN, BSN
CDI Specialist
tiger text
Please use your independent medical judgment in providing your response.
--- NOTE | 2024-09-18 12:09 | PN.CDI ---
CDI
- -
CDI:
Physician Documentation Request
Admit Date: 09/17/24 20:28
Dear Doctor Tanja,
Patient admitted with heart failure.
Sodium results
Laboratory Tests
09/17/24 09/18/24
18:41 04:53
Sodium 132 L 136
Could you please provide a diagnosis that supports the above lab abnormalities and additional evaluation, monitoring:
Hyponatremia
Abnormal lab value clinically insignificant
Other
Use of terms such as suspected, likely, concern for, or probable (associated with a specific diagnosis that is being evaluated, monitored, or treated as if it exists) are acceptable and can be coded in the inpatient setting, when documented at the
time of discharge.
Thank you,
Karlene Farris RN, BSN
CDI Specialist
tiger text
Please use your independent medical judgment in providing your response.
--- NOTE | 2024-09-18 15:00 | PTCARENOTE ---
Patient wore CPAP briefly this morning, currently he is on 2L via n/c. Pulse ox mid to upper 90's. Patient reports that his breathing is much better. Occasional dry cough noted. Left hip dressing intact, ecchymosis around the left hip. Pain is
minimal he did not want any tylenol. Ice pack applied to left hip intermittently during the day. Patient ambulated to chair and bathroom with assistance x1. Using urinal independently. VS stable. V-paced on monitor.
[2024-09-18] MEDS: PACERONE 200 MG PO (17:43)
[2024-09-18] MEDS: LIPITOR 40 MG PO (19:13)
[2024-09-18] MEDS: TYLENOL 650 MG PO (21:23)
--- NOTE | 2024-09-18 21:25 | PTCARENOTE ---
Pt alert, oriented. Requested PRN tylenol for mild L hip pain. Dressing remains intact. Pt able to ambulate to bathroom and back with assistx1. Denies SOB on 2L NC, SaO2 100% at rest. Call aponte within reach. Care ongoing.
[2024-09-19] VITALS (8 sets, daily range): BP systolic 106–146; BP diastolic 54–70; BMI 33.2
[2024-09-19] MEDS: SYNTHROID 75 MCG PO (05:50)
[2024-09-19 08:24] LABS: Blood Urea Nitrogen 42 mg/dl (9-20); Carbon Dioxide 29 mmol/L (22-30); Chloride 102 mmol/L (98-107); Estimated Creatinine Clearance 39 ml/min; Glucose 85 mg/dl (70-99); Sodium 135 mmol/L (135-145); eGFR 58.53
[2024-09-19] MEDS: TOPROL XL 25 MG PO (08:41)
[2024-09-19] MEDS: PROTONIX 40 MG PO (08:41)
[2024-09-19] MEDS: LASIX 40 MG IV (08:41)
[2024-09-19] MEDS: FARXIGA 10 MG PO (08:41)
[2024-09-19] MEDS: ELIQUIS 5 MG PO ×2 (08:41→19:28)
--- NOTE | 2024-09-19 10:34 | W.PN.CD ---
Addendum entered and electronically signed by Christiano Aleman MD 09/19/24 11:22:
I saw and examined the patient.
The HARVEST MANAGER's note was reviewed and I agree with the note.
Appears comfortable and sitting in chair. Respiratory status appears stable. Still with significant edema on exam. Based on I's and O's appears to be having good response to diuretics. Weights need to be updated.
Continue IV diuresis
Monitor labs,I's/O's and daily weights.
Original Note:
Today's Communication / Plan
-
-continue IV diuresis and monitoring
Impression / Plan
-
HFrEF - acute on chronic.
- continue IV lasix, which requires intensive monitoring- will need lasix at d/c
- weight on admit 188 lbs (10-12 lbs more than typical weight). No weight for today - placed order for daily weights. Still with BLE edema.
- HF educator.
ICM - EF 35-40% on echo 09/01/24.
- volume plan as above
- tolerating Toprol and Farxiga, previously GDMT limited by hypotension.
CAD - stable w/o angina.
- s/p PCI with MITZI to RCA in 09/2019.
- continue medical therapy.
Afib - paroxysmal.
- V paced on tele and device checks, no Afib.
- continue Amiodarone and Toprol.
- OAC with Eliquis.
- [id number] VASC score is 5.
PPM - DC Medtronic device.
- stable with normal function, V paced.
- followed in our outpatient device clinic.
Valvular heart disease - moderate , moderate MR, mild AR on echo 09/01/24.
- diuresis as above.
-needs to be monitored over time by echo
Physical Exam
Vital Signs/Labs
Vital Signs
Temp Pulse Resp BP Pulse Ox
98.2 F 80 32 114/58 100
09/19/24 07:00 09/19/24 08:47 09/19/24 08:00 09/19/24 08:47 09/19/24 09:22
09/18/24 09/19/24 09/20/24
06:59 06:59 06:59
Actual Weight 82.5 kg
09/17/24 18:41
09/19/24 05:57
PT 14.7 Sec (11.4-14.6) H 09/17/24 18:41
INR 1.09 09/17/24 18:41
09/17/24
18:41
Yed-J-Wtgsktugdbl Pept [id number]
LAB Results
09/17/24
18:41
Troponin I 0.023
Physical Exam
Constitutional: No acute distress
EENT: Anicteric
Cardiovascular: Rhythm & rate is regular and Pedal edema present (mild BLE edema)
Respiratory: Respiratory effort normal and Lungs clear to auscul.
Neuro/Psych: AO x 3
Data Reviewed
-
Date of Service: September 19, 2024
EKG: Other (VPACED)
Labs: Labs Reviewed by me
--- NOTE | 2024-09-19 11:13 | W.PN.HOSP.TC ---
Today's Communication/Plan
-
tx to tele
IV lasix
trend cr/bp
Assessment / Plan
Assessment / Plan
Acute on chronic HFrEF
Valvular disease with moderate aortic stenosis and mitral regurgitation
Suspect expanded Volume s/p Lt THR as of 09/13/24
Recent TTE LVEF 35-40 as of 09/01/24
Acute hypoxic respiratory failure
- c/w BiPAP as needed if needed
- IV Lasix 40 daily. May need to increase dose.
- FU daily BMP, wt and IOs
- c/w MICROBIOLOGICAL LAB TECHNICIAN Metoprolol XL 25 mg daily
- GDMT : on Empagliflozin
- Daily weight
- Probably will require diuretics standing dose at discharge
- cardiology following
CAD
-Status post MITZI to RCA
-Continue with goal-directed medical therapy
Recent Lt THR as of 09/13/24 @ [facility] , [facility]
- PT eval. On Eliquis for DVT prophylaxis
Paroxysmal atrial fibrillation status post pacemaker
- on MICROBIOLOGICAL LAB TECHNICIAN chronic Eliquis and Amiodarone
- Status post interrogation with normal function per cardiology
Benign Hypertension.
- c/w Metoprolol XL
Hypothyroidism
- on MICROBIOLOGICAL LAB TECHNICIAN LT4
Hyperlipidemia
- on MICROBIOLOGICAL LAB TECHNICIAN Atorvastatin
Mild hyponatremia resolved
DVT Px: on MICROBIOLOGICAL LAB TECHNICIAN Eliquis
Full code
Anticipated Discharge: > 48 hours
Subjective/Interval History
-
Date of Service: September 19, 2024
Did not require usage of BiPAP yesterday and overnight
States he was just taken off oxygen
Objective Data
-
Labs:
Laboratory Results
09/19/24
05:57
Sodium 135
Potassium 4.0
Chloride 102
Carbon Dioxide 29
BUN 42 H
Creatinine 1.2
Glucose 85
Calcium 9.0
Vital Signs:
Vital Signs
Temp Pulse Resp BP Pulse Ox
98.2 F 80 32 114/58 100
09/19/24 07:00 09/19/24 08:47 09/19/24 08:00 09/19/24 08:47 09/19/24 09:22
I&O
09/18/24 09/19/24 09/20/24
06:59 06:59 06:59
Intake Total 925 / 925 300 / 300
Output Total 1949 1130 / 1130
Balance -1949 - / 300 / 300
Physical Exam
-
General: Well Developed and No Apparent Distress
HEENT: Normocephalic, Atraumatic and Moist Mucous Membranes
Respiratory: Clear to Auscultation
Cardiac: Regular Rhythm and S1/S2; Negative Murmur, Rub or Gallop
GI: Soft, Nontender, Nondistended and Normal Bowel Sounds; Negative Organomegaly
Rectal: Deferred by Provider
Musculoskeletal: No Clubbing, No Cyanosis, Edema, Right Lower Extrem (2+ pitting), Edema, Left Lower Extrem (2+ pitting) and Other (Left hip Aquacel dressing noted)
Skin: Negative Rash
Neuro: Awake, Alert and Nonfocal/Grossly Intact
Psych: Calm
--- NOTE | 2024-09-19 14:16 | PTCARENOTE ---
Received pt from IMU into room 410-2. Pt ambulatory with stand by/ x1 assistance. Educated pt to call before getting up. Pt verbalizes understanding. Weight obtained and documented. Ice pack provided for L hip. Oriented to room. Pt OOB to chair,
call aponte within reach, no complaints at this time.
[2024-09-19] MEDS: LIPITOR 40 MG PO (17:36)
[2024-09-19] MEDS: PACERONE 200 MG PO (17:36)
[2024-09-19] MEDS: TYLENOL 650 MG PO (21:17)
[2024-09-20 03:55] VITALS: BP 122/78
[2024-09-20] MEDS: SYNTHROID 75 MCG PO (04:54)
[2024-09-20 05:00] VITALS: BMI 32.8
[2024-09-20] MEDS: TYLENOL 650 MG PO (05:47)
[2024-09-20 06:57] LABS: Blood Urea Nitrogen 41 mg/dl (9-20); Calcium 9.2 mg/dl (8.4-10.2); Carbon Dioxide 31 mmol/L (22-30); Chloride 102 mmol/L (98-107); Estimated Creatinine Clearance 39 ml/min; Glucose 94 mg/dl (70-99); Potassium 3.6 mmol/L (3.5-5.1); Sodium 138 mmol/L (135-145); eGFR 58.53
[2024-09-20 07:11] VITALS: BP 111/73
[2024-09-20] MEDS: ELIQUIS 5 MG PO (09:11)
[2024-09-20] MEDS: TOPROL XL 25 MG PO (09:11)
[2024-09-20] MEDS: PROTONIX 40 MG PO (09:11)
[2024-09-20] MEDS: FARXIGA 10 MG PO (09:11)
[2024-09-20] MEDS: LASIX 40 MG IV (09:12)
--- NOTE | 2024-09-20 10:42 | W.PN.HOSP.TC ---
Today's Communication/Plan
-
IV lasix
cont diuresis
trend cr-holding so far
Assessment / Plan
Assessment / Plan
Acute on chronic HFrEF
Valvular disease with moderate aortic stenosis and mitral regurgitation
Suspect expanded Volume s/p Lt THR as of 09/13/24
Recent TTE LVEF 35-40 as of 09/01/24
Acute hypoxic respiratory failure
- c/w BiPAP as needed if needed
- IV Lasix 40 daily. May need to increase dose.
- FU daily BMP, wt and IOs
- c/w STRAND FORMING MACHINE OPERATOR Metoprolol XL 25 mg daily
- GDMT : on Empagliflozin
- Daily weight. Lost around 2lbs in 24h.
- Probably will require diuretics standing dose at discharge
- cardiology following
CAD
-Status post MITZI to RCA
-Continue with goal-directed medical therapy
Recent Lt THR as of 09/13/24 @ [facility] , [facility]
- PT eval. On Eliquis for DVT prophylaxis
Paroxysmal atrial fibrillation status post pacemaker
- on STRAND FORMING MACHINE OPERATOR chronic Eliquis and Amiodarone
- Status post interrogation with normal function per cardiology
Benign Hypertension.
- c/w Metoprolol XL
Hypothyroidism
- on STRAND FORMING MACHINE OPERATOR LT4
Hyperlipidemia
- on STRAND FORMING MACHINE OPERATOR Atorvastatin
Mild hyponatremia resolved
DVT Px: on STRAND FORMING MACHINE OPERATOR Eliquis
Full code
Anticipated Discharge: 24 - 48 hours
Subjective/Interval History
-
Date of Service: September 20, 2024
States significant improvement in breathing
Objective Data
-
Labs:
Laboratory Results
09/20/24
05:54
Sodium 138
Potassium 3.6
Chloride 102
Carbon Dioxide 31 H
BUN 41 H
Creatinine 1.2
Glucose 94
Calcium 9.2
Vital Signs:
Vital Signs
Temp Pulse Resp BP Pulse Ox
98.3 F 70 20 111/73 96
09/20/24 07:11 09/20/24 09:11 09/20/24 07:11 09/20/24 09:11 09/20/24 07:11
I&O
09/19/24 09/20/24 09/21/24
06:59 06:59 06:59
Intake Total 925 / 925 780 / 780 360 / 360
Output Total 1130 / 1130 1025 / 1025 225 / 225
Balance -205 / -205 -245 / -245 135 / 135
Physical Exam
-
General: Well Developed and No Apparent Distress
HEENT: Normocephalic, Atraumatic and Moist Mucous Membranes
Respiratory: Clear to Auscultation
Cardiac: Regular Rhythm and S1/S2; Negative Murmur, Rub or Gallop
GI: Soft, Nontender, Nondistended and Normal Bowel Sounds; Negative Organomegaly
Rectal: Deferred by Provider
Musculoskeletal: No Clubbing, No Cyanosis, Edema, Right Lower Extrem (1+ pitting), Edema, Left Lower Extrem (2+ pitting) and Other (Left hip Aquacel dressing noted)
Skin: Negative Rash
Neuro: Awake, Alert and Nonfocal/Grossly Intact
Psych: Calm
[2024-09-20 11:25] VITALS: BP 100/72
[2024-09-20 11:26] VITALS: BP 105/75
[2024-09-20 11:55] VITALS: BP 100/72
--- NOTE | 2024-09-20 12:13 | W.DCSUMMARY ---
Discharge Summary
Discharge Data
Date of Admission: 09/17/24
Date of Discharge: 09/20/24
-
Pending Results: No
Hospital Course
88 yo m w/ past medical history of chronic HFrEF, valvular disease, CAD, atrial fibrillation, hypertension, hypothyroidism, hyperlipidemia who is presenting from home with shortness of breath. Patient was found to have a acute heart failure
exacerbation. Patient was not on standing diuretic as outpatient. Patient was started on IV Lasix. Patient was eval by cardiology. Patient with significant improvement. Patient was stable on room air. Patient electrolytes were trended.
Creatinine remained stable. Blood pressure was stable. Patient will be transition to Lasix 40 mg p.o. daily with outpatient follow-up with his primary microbiology lab technician.
Discharge Plan
-
Patient Disposition: Home (Routine Discharge)
Discharge Diagnosis/Procedures: Acute on chronic HFrEF
Condition: Fair
Diet: 2 Gram Sodium and Restrict fluids to 48 oz
Activity: As tolerated
Driving Restrictions: As prior to admission
Specialty Instructions: Weigh Daily- Call MD for wt gain/loss 3 lbs overnight/5 lbs in 1 week
Instructions: *CBC Heart Failure Instructions
Referrals:
Bettye Beltre, DO [Family Provider] - in less than 1 week
Velma Leach MD [Active] - None (Call next week for appointment)
Prescriptions:
New
furosemide 40 mg Tablet
40 mg PO DAILY Qty: 30 0RF
Continued
amiodarone [Pacerone] 200 MG tablet
200 mg PO QPM
Eliquis 5 MG tablet
5 mg PO BID
atorvastatin 40 MG tablet
40 mg PO QPM Qty: 90 3RF
Rx Instructions:
Please note dose increase
pantoprazole 40 MG tablet,delayed release (DR/EC)
40 mg PO DAILY Qty: 90 3RF
levothyroxine [Synthroid] 75 mcg Tablet
75 mcg PO DAILY
acetaminophen [Tylenol Extra Strength] 500 mg Tablet
1,000 mg PO TID
metoprolol succinate [Toprol XL] 25 mg Tablet Extended Release 24 Hr
25 mg PO DAILY
methylprednisolone [Medrol (Twan)] 4 mg Tablets,Dose Pack
0 mg PO PER PKG DIR
oxycodone 5 mg Tablet
5 mg PO Q4HPRN PRN (Reason: severe pains)
empagliflozin 25 mg Tablet
12.5 mg PO DAILY
Discontinued
celecoxib 200 mg Capsule
200 mg PO DAILY
Rx Instructions:
for 30 days after syrgery on 09/15/24
Discharge Date and Time
Print Language: MOSOT[place]
[2024-09-20 12:40] LABS: TSH 0.19 uIU/ml (0.47-4.68)
[2024-09-20] MEDS: KCL 20 MEQ PO (13:02)
== END 2024-09-20 16:05 | disposition home or self-care (01) | DRG 291 ==
LOC: 4 EAST ACU 20:28
PROVIDERS: Emergency Medicine; ADMITTING PHYSICIAN Internal Medicine; ATTENDING PHYSICIAN Hospitalist; EMERGENCY PHYSICIAN Emergency Medicine; FAMILY PHYSICIAN Family Medicine; OTHER PHYSICIAN Internal Medicine Cardiovascular Disease
DX: I11.0 Hypertensive heart disease with heart failure (principal); I50.23 Acute on chronic systolic (congestive) heart failure; J96.01 Acute respiratory failure with hypoxia; Z87.891 Personal history of nicotine dependence; Z11.52 Encounter for screening for COVID-19; I48.0 Paroxysmal atrial fibrillation; E03.9 Hypothyroidism, unspecified; E78.00 Pure hypercholesterolemia, unspecified; Z82.49 Family history of ischemic heart disease and other diseases of the circulatory system; I25.10 Atherosclerotic heart disease of native coronary artery without angina pectoris; Z79.01 Long term (current) use of anticoagulants
CPT/HCPCS: 71045; 80048; 80053; 83880; 84443; 84484; 85025; 85610; 87502; 87811; 93005; 94640; 94660; 96374; 97116; 97162; 99291

== ENCOUNTER → 2024-09-23 06:39 | Outpatient (REF) | payer MEDICARE, OTHER, SELFPAY ==
[2024-09-23 08:21] LABS: Blood Urea Nitrogen 45 mg/dl (9-20); Calcium 9.5 mg/dl (8.4-10.2); Carbon Dioxide 28 mmol/L (22-30); Chloride 102 mmol/L (98-107); Glucose 103 mg/dl (70-99); Sodium 137 mmol/L (135-145); eGFR 48.65
== END ==
LOC: REG 06:39
PROVIDERS: ATTENDING PHYSICIAN Internal Medicine Cardiovascular Disease; FAMILY PHYSICIAN Family Medicine
DX: I50.20 Unspecified systolic (congestive) heart failure (principal)
CPT/HCPCS: 36415; 80048

== ENCOUNTER → 2024-09-29 06:31 | Outpatient (REF) | payer MEDICARE, OTHER, SELFPAY ==
[2024-09-29 07:38] LABS: % Basophils 0.3 % (0-2); % Eosinophils 1.3 % (0-6); % Immature Granulocytes 0.4 % (0-0.5); % Monocytes 5.7 % (1.7-9.3); % Neutrophils 66.3 % (42.2-75.2); Absolute Eosinophils 0.1 10^3/uL (0-0.7); Absolute Lymphocytes 2.1 10^3/uL (1.2-3.4); Absolute Monocytes 0.5 10^3/uL (0.1-0.6); Absolute Neutrophils 5.2 10^3/uL (1.4-6.5); Hematocrit 35.1 % (39.0-52.0); Hemoglobin 11.7 g/dL (13.0-18.0); Mean Corp Hgb Conc. 33.3 g/dL (33.0-37.0); Mean Corpuscular Hgb 34.4 pg (27.0-31.0); Mean Corpuscular Volume 103.2 fL (80.0-94.0); Mean Platelet Volume 9.9 fL (7.4-10.4); Nucleated Red Blood Cells % 0 % (-); Platelet Count 306 10^3/uL (130-400); Red Cell Dist. Width 15.9 % (11.5-14.5); White Blood Cell Count 7.9 10^3/uL (4.8-10.8)
[2024-09-29 08:15] LABS: Blood Urea Nitrogen 30 mg/dl (9-20); Calcium 9.3 mg/dl (8.4-10.2); Carbon Dioxide 26 mmol/L (22-30); Chloride 103 mmol/L (98-107); Glucose 91 mg/dl (70-99); Potassium 4.4 mmol/L (3.5-5.1); Sodium 138 mmol/L (135-145); eGFR 53.17
== END ==
LOC: REG 06:31
PROVIDERS: ATTENDING PHYSICIAN Internal Medicine Cardiovascular Disease; FAMILY PHYSICIAN Family Medicine
DX: I50.20 Unspecified systolic (congestive) heart failure (principal); I48.0 Paroxysmal atrial fibrillation; R53.83 Other fatigue
CPT/HCPCS: 36415; 80048; 85025

== ENCOUNTER 2024-10-29 19:30 | Inpatient (IN) | payer MEDICARE, OTHER, SELFPAY ==
[2024-10-29] VITALS (9 sets, daily range): BP systolic 88–130; BP diastolic 52–98; BMI 32.5; BMI 31.3
[2024-10-29 17:31] LABS: Hematocrit 28.6 % (39.0-52.0); Hemoglobin 9.4 g/dL (13.0-18.0); Mean Corp Hgb Conc. 32.9 g/dL (33.0-37.0); Mean Corpuscular Volume 102.5 fL (80.0-94.0); Nucleated Red Blood Cells % 0 % (-); Platelet Count 337 10^3/uL (130-400); Red Cell Dist. Width 15.4 % (11.5-14.5)
[2024-10-29 17:57] LABS: ALT (SGPT) 25 U/L (0-50); AST (SGOT) 33 U/L (17-59); Albumin 3.8 g/dl (3.5-5.0); Alkaline Phosphatase 84 U/L (38-126); Blood Urea Nitrogen 31 mg/dl (9-20); Calcium 9.2 mg/dl (8.4-10.2); Carbon Dioxide 26 mmol/L (22-30); Chloride 100 mmol/L (98-107); Glucose 131 mg/dl (70-99); Potassium 4.1 mmol/L (3.5-5.1); Sodium 135 mmol/L (135-145); Total Protein 6.3 g/dl (6.3-8.2); eGFR > 60.00
[2024-10-29 18:12] LABS: Troponin I 0.080 ng/ml
--- NOTE | 2024-10-29 18:22 | ED.GENMED ---
History of Present Illness
General
Chief Complaint: Breathing Problem
Source: patient
Exam Limitations: none
Time Seen by Provider: 10/29/24 18:05
Nursing documentation reviewed up to this point in time: agreed with
History of Present Illness
History of Present Illness:
Patient to ED with complaint of increasing SOB, increasing BLE edema. He is unsure how many days this has been going on. Brought to ED by family for eval.
Past History
Past History
ED Past Medical History: Arrthythmia (Atrial fibrillation), HTN, Hypercholesterolemia, Hypothyroidism and Other (Pacemaker, right bundle branch block)
ED Past Surgical History: None
Social History
Tobacco: Former smoker
Alcohol: Binge drinker
Personal:
Living: with family
Employment: Retired
Family History
Family History: Other
Review of Systems
Review of Systems
Allergies reviewed?: Yes
All Other Systems: ROS reviewed and negative except as documented in HPI and ROS
Constitutional: Reports no symptoms
EENT: Reports no symptoms
Respiratory: Reports trouble breathing
Cardiac: Reports no symptoms
ABD/GI: Reports no symptoms
: Reports no symptoms
Musculoskeletal: Reports no symptoms
Skin: Reports no symptoms
Neurological: Reports weakness
Psychiatric: Reports no symptoms
Phy Exam
General Physical Exam
General Presentation: moderate distress
General age: appears stated age
General Skin: warm and dry
General Habitus: normal
Cardiovascular Exam
Cardiovascular Exam: regular rate/rhythm
Pulmonary Exam
Breath Sounds: Wheeze: generalized
Gastrointestinal Exam
Gastrointestinal Exam: normal bowel sounds and non tender
Musculoskeletal Exam
Musculoskeletal Exam: full ROM and edema (+2BLE)
Skin Exam
Skin Exam: normal color, warm/dry and no rash
Psychiatric Exam
Psychiatric Exam: normal mood/affect
Scores
Heart Failure Risk
Heart Failure Risk Score: Yes
History of Stroke or TIA: No
History of intubation for respiratory distress: No
Heart rate on ED arrival >/= 110: No
SaO2 <90% on arrival on room air: Yes
HR >/=110 during 3min walk test (or too ill to perform test): Yes
ECG has acute ischemic changes: No
Urea >/=12mmol/L (BUN 33.6mg/dL): No
Serum CO2>/=35mmol/L: No
Troponin I or T elevated to MA Level (0.4mg/dL): Yes
NT-proBNP >/=5,000ng/L (5,000pg/ml): Yes
HF Risk Score: 6
Admission Status: VERY HIGH RISK 55.3% Consider admission to hospital
Course
Orders/Labs/Results
Orders:
Orders
10/29/24 Dinner
Cholesterol Lowering
At Your Request: Limited Participation
Does patient need a safe tray?: No
Cholesterol Lowering: Sodium, 2 Gram
10/29/24 16:04
Electrocardiogram (*1) Urgent
Reason for Study: Shortness of Breath
EKG- Treatment ONCE
10/29/24 17:12
CR Chest - 2 Views Urgent
Comment:
Reason For Exam: respiratory distress
10/29/24 17:17
Complete Blood Count/With Diff Urgent
Comprehensive Metabolic Panel Urgent
NT-proBNP Urgent
Troponin I Urgent
10/29/24 18:22
Furosemide [Lasix] 20 mg IV NOW STA
Ipratropium/Albuterol Sulfate [Duoneb] 3 ml INH R NOW STA
10/29/24 18:40
Midodrine [ProAmatine] 10 mg PO NOW STA
10/29/24 19:17
Admit/Transfer Patient As Directed
Co-Sign Provider:
Level of Care: Inpatient admission
Assign to:: Telemetry
Physician / Group: Renetta
Diagnosis: CHF
Reason for Telemetry: Acute Heart Failure
Date to Stop Telemetry: 11/01/24
Time to Stop Telemetry: 11:00
Reason for Hospitalization: IV diuretics
Expected length of stay greater than two midnights?: Yes
ELOS- Estimated Length of Stay in days: 3
I certify the patient meets the requirements for IP care: Yes
PRN Pain Medication Management As Directed
May give lesser potent ordered pain med per pt: Yes
preference::
Protocol:: Medication orders for pain may be administered in a
manner that supports deferring to patient preference
when the pt is:
- Requesting an ordered lesser potent pain medication.
Least to most potent pain medications are defined
as: acetaminophen < NSAID < tramadol < opioids
(morphine, oxycodone, hydromorphone).
- Requesting a lesser dose of the same medication IF
ORDERED.
- Requesting a less intrusive route of administration
if both routes are prescribed by the provider (PO <
IV).
10/29/24 19:19
Code Status As Directed
Resuscitation Status: Do not resuscitate
Reached after discussion with pt or family/Healthcare POA: Yes
DNR Bracelet Application ONCE
10/29/24 19:30
Apixaban [Eliquis] 5 mg PO NOW STA
10/29/24 21:06
HF DIETARY CONSULT Routine
HF EDUCATOR CONSULT Routine
Comment:
Activity As Directed
Activity Level: Out of Bed-Early Mobility
Intake/ Output As Directed
Frequency: Per unit guidelines
Patient Education As Directed
Type: CHF folder
Comment: give on admission. Document in Interdisciplinary Education record
Sleep Apnea Assessment by RN As Directed
Comment:
Physician Instructions:
Vital Signs As Directed
Frequency: Other
Additional Instructions:: Q12 or per unit guidelines if more frequent.
Weight As Directed
Frequency: Daily
Type of Scale: Standing Scale
Comment: Daily morning weight. If unable to stand, use balanced bed scale.
Weight As Directed
Frequency: Once
Type of Scale: Standing Scale
Comment: Upon Admission. If unable to stand, use balanced bed scale.
O2 Therapy [RESP] Routine
Titrate/Wean O2 to maintain O2 sat greater than (%): 90
Pulse Ox/cont/shift [RESP] Routine
Quantity: 1
Special Instructions: Daily pulse oximetry at rest. If greater than 92% at rest also obtain pulse oximetry
while ambulating as tolerated.
10/29/24 21:29
Troponin I Q6H
10/30/24 03:15
Troponin I Q6H
10/30/24 06:00
Basic Metabolic Panel IN AM
Complete Blood Count/No Diff IN AM
Magnesium IN AM
Levothyroxine [Synthroid] 75 mcg PO DAILY @ 0600
10/30/24 08:00
Apixaban [Eliquis] 5 mg PO BID
Dapagliflozin [Farxiga] 5 mg PO DAILY
Furosemide [Lasix] 40 mg IV DAILY
Midodrine [ProAmatine] 10 mg PO TID @ 0800,1200,1700
10/30/24 18:00
Amiodarone [Pacerone] 200 mg PO QPM
Atorvastatin [Lipitor] 40 mg PO QPM
Ferrous Sulfate [Feosol] 325 mg PO QPM
10/31/24 06:00
Basic Metabolic Panel IN AM
11/01/24 06:00
Basic Metabolic Panel IN AM
11/01/24 11:00
DC Protocol for Telemetry ONCE
Abnormal Lab Results
10/29/24
17:17
RBC 2.79 L 10^6/uL
(4.70-6.10)
Hgb 9.4 L g/dL
(13.0-18.0)
Hct 28.6 L %
(39.0-52.0)
MCV 102.5 H fL
(80.0-94.0)
MCH 33.7 H pg
(27.0-31.0)
MCHC 32.9 L g/dL
(33.0-37.0)
RDW 15.4 H %
(11.5-14.5)
Absolute Lymphs (auto) 0.7 L 10^3/uL
(1.2-3.4)
Neutrophils % 84.6 H %
(42.2-75.2)
Lymphocytes % 10.2 L %
(20.5-51.1)
BUN 31 H mg/dl
(9-20)
Glucose 131 H mg/dl
(70-99)
Troponin I 0.080 H* ng/ml
10/29/24 17:17
10/29/24 17:17
Vital Signs
Initial and Last Documented VS:
Initial Vital Signs
Pulse Resp Pulse Ox
78 22 84
10/29/24 16:11 10/29/24 16:11 10/29/24 16:11
Last Documented Vital Signs
Temp Pulse Resp BP Pulse Ox
97.6 F 76 18 121/55 93
10/29/24 21:23 10/29/24 21:23 10/29/24 21:23 10/29/24 21:23 10/29/24 22:50
*Radiology
Radiology exam reviewed: radiology read reviewed
*Pulse Oximetry
SaO2: 89
Nasal Cannula flow liters per minute: 4
Patient hypoxic: no
*Critical Care Note
Total Time (30-74mins, 75-104mins- exclusive of procedures): Not Applicable
Update Note
Update Note:
Patient to ED with complaint of worsening SOB. History of CHF, taking Lasix at home, reports compliance. Labs reviewed. BNP >33550, Troponin 0.080. CXR consistent with CHF. Given 20mg lasix IV. Will admit to hospitalist. Pulse ox 98% on 3L NC
ED Attending Note
-
Portions of this chart may have been created with voice recognition software.� Occasional wrong word or��sound alike� substitutions may have occurred due to the inherent limitations of voice recognition software.
Discharge Plan
Departure
Patient Disposition: Admit
Date of Disposition: 10/29/24
Time of Disposition: 18:27
Presentation/result/management discussed w/ accepting MD/DO: Hospitalist
Patient with high blood pressure during this ER visit?: No
Condition: Fair
Covid-19: Not Applicable
Discharge Problem:
CHF (congestive heart failure)
Interventions
Interventions:
*Risk Screen - Suicide Last Done: 10/29/24 16:19
*General Assessment Last Done: 10/29/24 17:09
*Neglect/Abuse Screening Last Done: 10/29/24 17:09
*ED- Fall Risk Assessment Last Done: 10/29/24 17:09
*ED COVID-19 Vaccine History Last Done: 10/29/24 17:09
*Nursing Disposition Last Done: 10/29/24 21:01
ED- Cardiac Assessment Last Done: 10/29/24 17:09
ED- Pulmonary Assessment Last Done: 10/29/24 17:09
Discharge Date and Time
Discharge Date/Time: 10/29/24 21:01
[2024-10-29] MEDS: DUONEB 3 ML INH (18:25)
[2024-10-29] MEDS: LASIX 20 MG IV (18:25)
--- NOTE | 2024-10-29 18:36 | HPS.HSE ---
Family Physician
-
Family Physician: Bettye Beltre
Chief Complaint
-
Shortness of Breath
History of Present Illness
Patient is an 88 y/o male past medical history of coronary artery disease, heart failure, valvular heart disease, paroxysmal atrial fibrillation, chronic hypotension, and hypothyroidism who presents with increasing shortness of breath. Patient
reports about a week ago he started with increased shortness of breath and needed to be started on supplemental oxygen. He reports increasing lower extremity edema. He does weight himself daily and states his weight has been stable.
Medical History
Past Medical History
Past Medical History: Reports Other
Additional Past Medical History:
Coronary Artery Disease s/p MITZI to RCA
Chronic HFrEF
Valvular Heart Disease: Moderate aortic stenosis and Moderate mitral regurgitation
Paroxysmal Atrial Fibrillation
Chronic Hypotension
Hyperlipidemia
Hypothyroidism
Past Surgical History: Reports Other
Additional Past Surgical History:
Right Knee Surgery
Right Wrist/Ganglion Cyst Surgery
Cataract Surgery
Permanent Pacemaker
Social History
Tobacco: Former Smoker
Alcohol: Binge drinker
Personal:
Living: With Family
Family History
Family History: Not pertinent
Allergies / Home Medications
Allergies reflects when Allergies were last updated in [employer].
Home Medications with original date entered in [employer]
Allergy/Medication List:
Allergies
Allergy/AdvReac Type Severity Reaction Status Date / Time
hydrocodone Allergy TAKEN FROM Verified 09/17/24 18:42
MD ORDER
SHEET
05-22-2019
Penicillins Allergy Unknown Verified 09/17/24 18:42
pollen extracts Allergy sneezing, Verified 09/17/24 18:42
coughing,
runny nose
simvastatin Allergy TAKEN FROM Verified 09/17/24 18:42
MD ORDER
SHEET
05-22-2019
ground spores Allergy asthma Uncoded 09/17/24 18:42
Home Medications
amiodarone 200 mg tablet (Pacerone) 200 mg PO QPM Atrial fibrillation 05/25/19
apixaban 5 mg tablet (Eliquis) 5 mg PO BID Blood clot prevention/tx 10/26/19
atorvastatin 40 mg tablet 40 mg PO QPM #90 tabs 10/27/19
acetaminophen 500 mg tablet (Tylenol Extra Strength) 500 mg PO DAILYPRN PRN mild pain 09/17/24
empagliflozin 25 mg tablet 12.5 mg PO DAILY Diabetes 09/17/24
levothyroxine 75 mcg tablet (Synthroid) 75 mcg PO DAILY Thyroid 09/17/24
Calcium 600 + D(3) 1 tab PO DAILY 10/29/24
Triple [place] 3-6-9 1,000 mg PO BID 10/29/24
ascorbic acid (vitamin C) 500 mg tablet (Vitamin C) 500 mg PO DAILY 10/29/24
cyanocobalamin (vitamin B-12) 1 tab PO DAILY 10/29/24
ferrous sulfate 325 mg (65 mg iron) tablet (iron) 325 mg PO QPM 10/29/24
fexofenadine 180 mg tablet 180 mg PO DAILY PRN allergies 10/29/24
folic acid 1 mg tablet 1 mg PO QPM 10/29/24
furosemide 20 mg tablet 20 mg PO BID 10/29/24
garlic 1,000 mg capsule 1,000 mg PO DAILY 10/29/24
grape seed extract 100 mg capsule 100 mg PO DAILY 10/29/24
midodrine 10 mg tablet 10 mg PO TID 10/29/24
therapeutic multivitamin 1 tab PO DAILY 10/29/24
vitamin E 268 mg (400 unit) capsule 268 mg PO DAILY 10/29/24
Review of Systems
-
A 12 point ROS was completed and negative except as noted: Yes
Constitutional: Denies Fever or Chills
Respiratory: Reports Trouble Breathing; Denies Cough
Cardiac: Denies Chest Pain or Palpitations
Physical Exam
Vital Signs
Vital Signs
Temp Pulse Resp BP Pulse Ox
98.6 F 80 15 97/74 89
10/29/24 16:13 10/29/24 18:25 10/29/24 18:08 10/29/24 18:25 10/29/24 18:23
Physical Exam
General: Comfortable and Conversant
HEENT: Anicteric, Moist mucous membranes and Oxygen (Nasal Cannula)
Respiratory: Wheezes (Diffuse) and Non Labored Respirations
Cardiac: S1/S2 and Regular Rhythm; No Tachycardia
GI: Soft and Non Tender
Rectal: Deferred by Provider
Musculoskeletal: No Clubbing, No Cyanosis and Other (+3 pitting edema bilateral lower extremity )
Skin: Warm and Dry
Neuro: Awake, Alert, Oriented and Nonfocal/grossly intact
Psych: Calm
Laboratory Results
-
10/29/24 17:17
10/29/24 17:17
Laboratory Results
Total Bilirubin 1.3 mg/dl (0.2-1.3) 10/29/24 17:17
AST 33 U/L (17-59) 10/29/24 17:17
ALT 25 U/L (0-50) 10/29/24 17:17
Alkaline Phosphatase 84 U/L (38-126) 10/29/24 17:17
Troponin I 0.080 ng/ml H* 10/29/24 17:17
Data Reviewed
-
Lab Data: Labs Reviewed by me
Impression/Plan
-
Acute Hypoxic Respiratory Infuiciency secondary Acute on Chronic HFrEF
-Echo August 2024: Moderately reduced left ventricular systolic function. Global Hypokinesis with EF 35-40%. Stage II diastolic dysfunction. Moderate mitral regurgitation. Moderate aortic stenosis
-Consult Cardiology
-Continue Lasix 40mg IV Daily
-Continue empagliflozin
-Monitor Is&Os and Daily
-Continue supplemental oxygen - wean as able
Elevated Troponin, likely non-ischemic myocardial injury in setting of acute heart failure
-Continue to trend troponin
Paroxysmal Atrial Fibrillation s/p Permanent Pacemaker
-Continue amiodarone for rhythm
-Continue Eliquis
Chronic Hypotension
-Continue midodrine
Hyperlipidemia
-Continue atorvastatin
Hypothyroidism
-Continue levothyroxine
DVT proph: Eliquis
Code Status: DNR
--- NOTE | 2024-10-29 19:35 | W.PN.UPDATE ---
Update Note
Progress Note Update
This is an addendum to H&P written by APOLINAR Santos
I saw and examined the patient.
The INTEGRATION SOFTWARE DEVELOPER's note was reviewed and I agree with the note.
Comment:
Mr. Ezio Thompson is a 88 yo man with hx HFrEF (EF 35-40% TTE 09/01/24), CAD s/p PCI with MITZI to RCA 09/2019, paroxysmal afib, s/p PPM, moderate presents to the ER with progressive shortness of breath and LE swelling.
Triage VS: T 98.6, P 80, RR 15, BP 97/74, SpO2 89%
LABS: Na 135, K+ 4.1, Cl 100, CO2 26, BUN 31, Cr 1.1, Glucose 131, liver enzymes WNL, Trop 0.080, BNP > 27161
Heart Failure reduced EF, Acute Exacerbation
-admit to tele
-s/p Lasix 20mg IV in ER, will increase dose to 40mg tomorrow
-daily weights, strict I/O, fluid restriciton
-Cardiology consult
Non ischemic myocardial injury
-in setting of heart failure exacerbatin
-trend Troponin
Paroxysmal Afib
-LENDING CONSULTANT Eliquis, Amiodarone
Chronic Hypotension
-LENDING CONSULTANT Midodrine
Hypothyroidism - LENDING CONSULTANT Synthroid
DNR
remainder of plan per INTEGRATION SOFTWARE DEVELOPER note
[2024-10-29] MEDS: ELIQUIS 5 MG PO (19:46)
[2024-10-29 22:22] LABS: Troponin I 0.083 ng/ml
[2024-10-30 03:41] VITALS: BP 133/66
[2024-10-30 04:09] LABS: Troponin I 0.074 ng/ml
[2024-10-30 06:00] VITALS: BMI 31.1
[2024-10-30 07:10] LABS: Hematocrit 28.6 % (39.0-52.0); Hemoglobin 9.3 g/dL (13.0-18.0); Mean Corp Hgb Conc. 32.5 g/dL (33.0-37.0); Mean Corpuscular Volume 102.5 fL (80.0-94.0); Platelet Count 355 10^3/uL (130-400); Red Cell Dist. Width 15.2 % (11.5-14.5)
[2024-10-30 07:41] LABS: Blood Urea Nitrogen 32 mg/dl (9-20); Calcium 9.4 mg/dl (8.4-10.2); Carbon Dioxide 30 mmol/L (22-30); Chloride 99 mmol/L (98-107); Estimated Creatinine Clearance 41 ml/min; Glucose 93 mg/dl (70-99); Magnesium 2.1 mg/dl (1.6-2.3); Potassium 3.8 mmol/L (3.5-5.1); Sodium 138 mmol/L (135-145); eGFR > 60.00
[2024-10-30 07:55] VITALS: BP 123/69
[2024-10-30] MEDS: FARXIGA 5 MG PO (08:26)
[2024-10-30] MEDS: SYNTHROID 75 MCG PO (08:26)
[2024-10-30] MEDS: LASIX 40 MG IV ×2 (08:26→17:09)
[2024-10-30] MEDS: ELIQUIS 5 MG PO ×2 (08:26→19:51)
--- NOTE | 2024-10-30 10:47 | W.PN.HOSP.TC ---
Today's Communication/Plan
-
iv diuresis, lasix 40mg switched to BID; monitor daily; Cards on board
Assessment / Plan
Assessment / Plan
Physical Exam
General: Comfortable and Conversant
HEENT: Anicteric, Moist mucous membranes and Oxygen (Nasal Cannula)
Respiratory: Wheezes (Diffuse) and Non Labored Respirations
Cardiac: S1/S2 and Regular Rhythm; No Tachycardia
GI: Soft and Non Tender
Rectal: Deferred by Provider
Musculoskeletal: No Clubbing, No Cyanosis and Other (+3 pitting edema bilateral lower extremity )
Skin: Warm and Dry
Neuro: Awake, Alert, Oriented and Nonfocal/grossly intact
Psych: Calm
Acute Hypoxic Respiratory Infuiciency secondary Acute on Chronic HFrEF
-Echo August 2024: Moderately reduced left ventricular systolic function. Global Hypokinesis with EF 35-40%. Stage II diastolic dysfunction. Moderate mitral regurgitation. Moderate aortic stenosis
-Consult Cardiology
-Continue Lasix 40mg switched to BID
-Continue empagliflozin
-Monitor Is&Os and Daily Weights
-Continue supplemental oxygen - wean as able
-Wean o2 as tolerated; Goal O2>92%
Elevated Troponin, likely non-ischemic myocardial injury in setting of acute heart failure
-trops flat
- no longer need to trend
Paroxysmal Atrial Fibrillation s/p Permanent Pacemaker
-Continue amiodarone for rhythm
-Continue Eliquis
Chronic Hypotension
-Continue midodrine
Hyperlipidemia
-Continue atorvastatin
Hypothyroidism
-Continue levothyroxine
DVT proph: Eliquis
Code Status: DNR
Anticipated Discharge: 24 - 48 hours
Subjective/Interval History
-
Date of Service: October 30, 2024
Still short of breath, cannot lie flat
Objective Data
-
Labs:
Laboratory Results
10/30/24
05:56
WBC 6.0
Hgb 9.3 L
Hct 28.6 L
Plt Count 355
Sodium 138
Potassium 3.8
Chloride 99
Carbon Dioxide 30
BUN 32 H
Creatinine 1.1
Glucose 93
Calcium 9.4
Vital Signs:
Vital Signs
Temp Pulse Resp BP Pulse Ox
99.2 F 80 20 123/69 100
10/30/24 07:55 10/30/24 07:55 10/30/24 07:55 10/30/24 07:55 10/30/24 07:55
I&O
10/29/24 10/30/24 10/31/24
06:59 06:59 06:59
Intake Total 240 / 600 360 / 360
Output Total 630 / 930 300 / 300
Balance -390 / -330 60 / 60
Review of Systems
-
History Source: Patient
All other systems: Not reviewed unless documented
Physical Exam
-
General: Well Developed and No Apparent Distress
HEENT: Normocephalic, Atraumatic and Moist Mucous Membranes
Respiratory: Crackles (b/l throughout both lung brock)
Cardiac: Regular Rhythm and S1/S2; Negative Murmur, Rub or Gallop
GI: Soft, Nontender, Nondistended and Normal Bowel Sounds; Negative Organomegaly
Rectal: Deferred by Provider
Musculoskeletal: No Clubbing, No Cyanosis, Edema, Right Lower Extrem (1+ pitting), Edema, Left Lower Extrem (2+ pitting) and Other (Left hip Aquacel dressing noted)
Skin: Negative Rash
Neuro: Awake, Alert and Nonfocal/Grossly Intact
Psych: Calm
Data Reviewed
-
Diagnostic Radiology: Report Reviewed by me
Labs: Labs Reviewed by me
[2024-10-30 11:19] VITALS: BP 123/63
[2024-10-30 15:55] VITALS: BP 131/72
[2024-10-30] MEDS: PACERONE 200 MG PO (17:10)
[2024-10-30] MEDS: FEOSOL 325 MG PO (17:10)
[2024-10-30] MEDS: FOLVITE 1 MG PO (17:10)
[2024-10-30] MEDS: LIPITOR 40 MG PO (17:10)
--- NOTE | 2024-10-30 18:31 | CON.CAR ---
Consultation
Consultation Request
Date/Time Consultation Requested: 10/30/24
Date/Time Consultation Performed: 10/30/24
Requesting Provider: DR Blackburn
Performing Provider: Dr Leach (My outpatient)
Reason for Consultation: sob
Medical History
-
Chief Complaint: sob
History of Present Illness:
Mr. Thompson is an 88-year-old male with paroxysmal atrial fibrillation on Eliquis, hypertension, HFrEF (35-40%), moderate aortic stenosis with mild aortic regurgitation, moderate mitral regurgitation, s/p Medtronic dual chamber permanent pacemaker
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
He was recently hospitalized at [facility] from September 17 to September 20 with acute heart failure exacerbation. Discharge weight was 173 pounds and Lasix 40 mg once a day. Of note he did have a right left total hip replacement on 09/13/2024 and
has been having progressive shortness of breath since that time. He was seen in our office on 10/13/2024 with orthostasis and a weight lower than he had ever been at 171.2 pounds. Lasix was made as needed. He then was hospitalized at [facility] from 10/17/2024 to 10/21/2024 for acute heart failure exacerbation as well. He improved with IV diuresis. Blood pressure required the addition of midodrine. Despite diuresis he remained hypoxic and was sent home with 1 L of nasal
cannula. Review of the discharge summary from 10/21/2024 does not document discharge weight. However labs on the day of discharge include a hemoglobin of 9.4 platelet count of 265 sodium 140 potassium 3.7 chloride 101 BUN 24 creatinine 1.4 up from
1.[address] PE was done on 10/17/2024 ruling out PE. Discharge placed Lasix dose was 20 mg twice daily with midodrine 10 mg 3 times daily.
He presented to my office for an outpatient visit but felt too unwell to even have his visit and asked to be transported to the emergency department. He reports he felt better after intial discharge in september but started to feel poorly again a day
later.
Of note, feeling somewhat better today but not much. He reports he is eating well. He did miss his PFTs as he was in the hospital.
Past Medical History
Past Medical History: Other (as above)
Past Surgical History: Other (as above)
Social History
Tobacco: Former Smoker
Alcohol: Former (quit 2017)
Personal:
Living: With Family
Employment: Retired
Family History
Family History: Early CAD (father age 52 ?CAD)
Allergies / Home Medications
Allergy/AdvReac Type Severity Reaction Status Date / Time
hydrocodone Allergy TAKEN FROM Verified 09/17/24 18:42
MD ORDER
SHEET
05-22-2019
Penicillins Allergy Unknown Verified 09/17/24 18:42
pollen extracts Allergy sneezing, Verified 09/17/24 18:42
coughing,
runny nose
simvastatin Allergy TAKEN FROM Verified 09/17/24 18:42
MD ORDER
SHEET
05-22-2019
ground spores Allergy asthma Uncoded 09/17/24 18:42
�Medication �Instructions �Recorded �Confirmed �Type
amiodarone 200 mg tablet (Pacerone) 200 mg PO QPM Atrial fibrillation 05/25/19 10/29/24 History
apixaban 5 mg tablet (Eliquis) 5 mg PO BID Blood clot 10/26/19 10/29/24 History
prevention/tx
atorvastatin 40 mg tablet 40 mg PO QPM #90 tabs 10/27/19 10/29/24 Rx
acetaminophen 500 mg tablet 500 mg PO DAILYPRN PRN mild pain 09/17/24 10/29/24 History
(Tylenol Extra Strength)
empagliflozin 25 mg tablet 12.5 mg PO DAILY Diabetes 09/17/24 10/29/24 History
levothyroxine 75 mcg tablet 75 mcg PO DAILY Thyroid 09/17/24 10/29/24 History
(Synthroid)
Calcium 600 + D(3) 1 tab PO DAILY Supplement 10/29/24 10/29/24 History
[place]ple [place] 3-6-9 1,000 mg PO BID Supplement 10/29/24 10/29/24 History
ascorbic acid (vitamin C) 500 mg 500 mg PO DAILY Supplement 10/29/24 10/29/24 History
tablet (Vitamin C)
cyanocobalamin (vitamin B-12) 1 tab PO DAILY Supplement 10/29/24 10/29/24 History
ferrous sulfate 325 mg (65 mg 325 mg PO QPM Supplement 10/29/24 10/29/24 History
iron) tablet (iron)
fexofenadine 180 mg tablet 180 mg PO DAILY PRN allergies 10/29/24 10/29/24 History
folic acid 1 mg tablet 1 mg PO QPM Supplement 10/29/24 10/29/24 History
furosemide 20 mg tablet 20 mg PO BID Fluid 10/29/24 10/29/24 History
Retention/Swelling
garlic 1,000 mg capsule 1,000 mg PO DAILY Supplement 10/29/24 10/29/24 History
grape seed extract 100 mg capsule 100 mg PO DAILY Supplement 10/29/24 10/29/24 History
midodrine 10 mg tablet 10 mg PO TID Blood Pressure 10/29/24 10/29/24 History
therapeutic multivitamin 1 tab PO DAILY Supplement 10/29/24 10/29/24 History
vitamin E 268 mg (400 unit) capsule 268 mg PO DAILY Supplement 10/29/24 10/29/24 History
Review of Systems
-
All other systems: Negative unless noted
Physical Exam
Vital Signs
Temp Pulse Resp BP Pulse Ox
98.5 F 84 16 131/72 98
10/30/24 15:55 10/30/24 15:55 10/30/24 15:55 10/30/24 15:55 10/30/24 15:55
Lab Results
10/30/24:56
10/30/24 05:56
Troponin I 0.074 ng/ml H* 10/30/24 03:39
Jkl-E-Fzwkolmmpac Pept > 07879 pg/ml 10/29/24 17:17
Physical Exam
General: Well Developed and Well Nourished
HEENT: Normocephalic
Respiratory: Rhonchi (diffuse); Negative Wheezes or Crackles
Cardiac: S1/S2 and Regular Rhythm; Negative Peripheral Edema
Musculoskeletal: No Clubbing, No Cyanosis and No Edema
Impression / Plan
-
Acute hypoxic respiratory failure
-treating as HF, but wt is lowest it has ever been
-however probnp up, cxr with b/l interstitial infiltrates
-lets see how responds to diuretics but if no improvement in CXR/sx/oxygen requirement after diuresis, need to broaded our diff dx to consider noncardiogenic causes ---?Amiodarone tox, ?infectious or inflammatory cause
-anemia may also be contributing, see below
-could consider RHC in further eval pending clinical course
HFrEF - acute on chronic.
- continue IV lasix, which requires intensive monitoring
- will establish new 'dry weight'
GDMT:
-RICH/ARB/ARNI:limited by hypotension
-SGLTi: empagliflozin
-MRA:limited by hypotension
-BB:limited by hypotension
-Diuretic:40iv BID
-on midodrine for hypotension
ICM - EF 35-40% on echo 09/01/24.
- volume plan as above
- tolerating Toprol and Farxiga, previously GDMT limited by hypotension.
CAD - stable w/o angina.
- s/p PCI with MITZI to RCA in 09/2019.
- continue medical therapy.
Afib - paroxysmal.
- V paced on tele and device checks, no Afib.
- continue Amiodarone and Toprol.
- OAC with Eliquis.
- [id number] VASC score is 5.
PPM - DC Medtronic device.
- stable with normal function, V paced.
- followed in our outpatient device clinic.
Valvular heart disease - moderate , moderate MR, mild AR on echo 09/01/24.
- diuresis as above.
-needs to be monitored over time by echo
Nonsichemic AL due to acute hypoxic resp failure
-peak trop 0.083
- treat underlyin cause
Anemia:
-down to 9.3, in June was 12.8. He had surgery and multiple admissions
-will check iron studies
-may be due to frequent phlebotomoy an hospitalizaitons.
-MCV is up check folate and b12
Data Reviewed
-
EKG: Tracing Personally Visualized and interpreted (asense v pace ulr sinus)
Radiology: Report Reviewed by me (interstitial pulm infiltrates. )
Medical Tests (Nuc Med, Echo etc): Discussed with Physician (Dr Arizmendi, will treat chf but if no rapid improvement broaden diff dx)
Labs: Labs Reviewed by me (>[id number])
[2024-10-30 19:53] VITALS: BP 121/69
[2024-10-30 23:49] VITALS: BP 113/55
[2024-10-31 03:26] VITALS: BP 123/61
[2024-10-31 06:00] VITALS: BMI 31.0
[2024-10-31] MEDS: SYNTHROID 75 MCG PO (06:09)
[2024-10-31 07:30] LABS: Hematocrit 28.4 % (39.0-52.0); Hemoglobin 9.2 g/dL (13.0-18.0); Mean Corp Hgb Conc. 32.4 g/dL (33.0-37.0); Mean Corpuscular Volume 101.1 fL (80.0-94.0); Platelet Count 356 10^3/uL (130-400); Red Cell Dist. Width 15.1 % (11.5-14.5)
[2024-10-31 07:54] LABS: Blood Urea Nitrogen 34 mg/dl (9-20); Calcium 9.2 mg/dl (8.4-10.2); Carbon Dioxide 31 mmol/L (22-30); Chloride 98 mmol/L (98-107); Estimated Creatinine Clearance 41 ml/min; Glucose 106 mg/dl (70-99); Iron 28 ug/dl (49-181); Potassium 3.9 mmol/L (3.5-5.1); Sodium 136 mmol/L (135-145); eGFR > 60.00
[2024-10-31 07:55] VITALS: BP 138/65
[2024-10-31 08:29] LABS: Ferritin 223.0 ng/ml (17.9-464.0)
[2024-10-31 09:00] LABS: Folate > 20.0 ng/ml (2.76-20); Vitamin B12 > 1000 pg/ml (239-931)
[2024-10-31] MEDS: FARXIGA 5 MG PO (09:25)
[2024-10-31] MEDS: ELIQUIS 5 MG PO ×2 (09:25→19:54)
[2024-10-31] MEDS: LASIX 40 MG IV ×2 (09:25→16:19)
--- NOTE | 2024-10-31 09:37 | W.PN.CD ---
Today's Communication / Plan
-
- Continue Lasix 40 mg IV BID.
Impression / Plan
-
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
- BNP >27,000.
- Continue Lasix 40 mg IV BID; requires intensive monitoring.
- No Toprol secondary to blood pressure limitations (on midodrine).
- Continue Farxiga.
GDMT:
-RICH/ARB/ARNI:limited by hypotension
-SGLTi: empagliflozin
-MRA:limited by hypotension
-BB:limited by hypotension
-Diuretic:40iv BID
CAD - stable w/o angina.
- s/p PCI with MITZI to RCA in 09/2019.
- continue medical therapy.
- Currently stable.
Afib - paroxysmal.
- V paced on tele and device checks, no Afib.
- Continue Amiodarone.
- Continue Eliquis.
- [id number] VASC score is 5.
PPM - DC Medtronic device.
- stable with normal function, V paced.
- followed in our outpatient device clinic.
Valvular heart disease - moderate , moderate MR, mild AR on echo 09/01/24.
- Continue diuresis as above.
- No need to repeat echo.
Acute Non-ischemic myocardial injury due to acute hypoxic resp failure/CHF
- peak trop 0.083
Anemia:
-down to 9.3, in June was 12.8. He had surgery and multiple admissions
-will check iron studies
-may be due to frequent phlebotomoy an [facility].
-MCV is up check folate and b12
Physical Exam
Vital Signs/Labs
Vital Signs
Temp Pulse Resp BP Pulse Ox
97.4 F 73 18 138/65 98
10/31/24 07:55 10/31/24 07:55 10/31/24 07:55 10/31/24 07:55 10/31/24 07:55
10/30/24 10/31/24 11/01/24
06:59 06:59 06:59
Actual Weight 74.531 kg 74.417 kg
10/31/24 07:08
10/31/24 07:08
Magnesium 2.1 mg/dl (1.6-2.3) 10/30/24 05:56
10/29/24
17:17
Zpf-K-Tqvutlcccxk Pept > 03314
LAB Results
10/29/24 10/29/24 10/30/24
17:17 21:29 03:39
Troponin I 0.080 H* 0.083 H* 0.074 H*
Physical Exam
Constitutional: No acute distress and Comfortable
EENT: Anicteric
Cardiovascular: Rhythm & rate is regular, Pedal edema present (2+ bilateral pitting), Systolic murmur present (2/6) and S1S2 is normal
Respiratory: Respiratory effort normal and Rhonchi Present
GI: Soft
Neuro/Psych: AO x 3
Other: Skin (Warm, dry)
Data Reviewed
-
Date of Service: October 31, 2024
EKG: Tracing Personally Visualized and interpreted (Telemetry: V-Paced)
Echo: Report Reviewed by me (09/01/2024: LVEF 35-40%; moderate MR/AAS; mild AR.)
Medical Tests (PFT, Pathology etc): Discussed with Patient
Labs: Labs Reviewed by me
--- NOTE | 2024-10-31 10:24 | W.PN.HOSP.TC ---
Today's Communication/Plan
-
cont diuresis
ct chest
iron panel, tsh w/ reflex free t4
Assessment / Plan
Assessment / Plan
Physical Exam
General: Comfortable and Conversant
HEENT: Anicteric, Moist mucous membranes and Oxygen (Nasal Cannula)
Respiratory: Wheezes (Diffuse) and Non Labored Respirations
Cardiac: S1/S2 and Regular Rhythm; No Tachycardia
GI: Soft and Non Tender
Rectal: Deferred by Provider
Musculoskeletal: No Clubbing, No Cyanosis and Other (+3 pitting edema bilateral lower extremity )
Skin: Warm and Dry
Neuro: Awake, Alert, Oriented and Nonfocal/grossly intact
Psych: Calm
Acute Hypoxic Respiratory failure secondary to suspected acute on Chronic HFrEF
-Echo August 2024: Moderately reduced left ventricular systolic function. Global Hypokinesis with EF 35-40%. Stage II diastolic dysfunction. Moderate mitral regurgitation. Moderate aortic stenosis
-Consult Cardiology
-Continue Lasix 40mg switched to BID
-Continue empagliflozin
-Monitor Is&Os and Daily Weights
-Continue supplemental oxygen - wean as able
-Wean o2 as tolerated; Goal O2>92%
� Speaking to cardiology, patient has been diuresed well in the past and still has persistent symptoms. Symptoms may be multifactorial.
� In an effort for further evaluation, CT chest today, especially with amiodarone use
� May benefit from pulmonary, PFTs outpatient
� May also benefit from right heart cath depending on improvement of diuresis
#Acute on Chronic HFrEF (EF 35-40% on echo 09/01/24)
Lasix as above
-GDMT:
-RICH/ARB/ARNI:limited by hypotension
-SGLTi: empagliflozin
-MRA:limited by hypotension
-BB:limited by hypotension
-Diuretic:40iv BID
CAD
Elevated Troponin, likely non-ischemic myocardial injury in setting of acute heart failure and acute hypoxia
-trops flat
- no longer need to trend
Paroxysmal Atrial Fibrillation s/p Permanent Pacemaker
-Continue amiodarone for rhythm
-Continue Eliquis
Chronic Hypotension
-Continue midodrine
Hyperlipidemia
-Continue atorvastatin
Hypothyroidism
-Continue levothyroxine
Anemia
Iron Deficiency Anemia
MCV elevated
-add on Iron sat
-already on ferrous sulfate
-monitor hgb
-F/u TSH w/ reflex free t4
-B12, folate WNL
�Primary care screening outpatient
DVT proph: Eliquis
Code Status: DNR
Total time spent on today's encounter was 51 minutes which included time spent in counseling the patient/family regarding diagnosis and treatment plan as listed above, goals of care, and symptom management. Case was discussed with nursing staff,
specialists, and care coordinators/case management. All labs and imaging personally reviewed by me. Remainder the time spent in detailed review of previous records, lab data, imaging, and other medical provider documentation.
Anticipated Discharge: 24 - 48 hours
Subjective/Interval History
-
Date of Service: October 31, 2024
No acute events overnight
Objective Data
-
Labs:
Laboratory Results
10/31/24
07:08
WBC 6.8
Hgb 9.2 L
Hct 28.4 L
Plt Count 356
Sodium 136
Potassium 3.9
Chloride 98
Carbon Dioxide 31 H
BUN 34 H
Creatinine 1.1
Glucose 106 H
Calcium 9.2
Vital Signs:
Vital Signs
Temp Pulse Resp BP Pulse Ox
97.4 F 73 18 138/65 98
10/31/24 07:55 10/31/24 07:55 10/31/24 07:55 10/31/24 07:55 10/31/24 07:55
I&O
0710/31/24 11/01/24
06:59 06:59 06:59
Intake Total 240 / 600 1440 / 1440
Output Total 630 / 930 1210 / 1210 500 / 500
Balance -390 / -330 230 / 230 -500 / -500
Review of Systems
-
History Source: Patient
All other systems: Not reviewed unless documented
Data Reviewed
-
Diagnostic Radiology: Report Reviewed by me
Labs: Labs Reviewed by me
[2024-10-31 11:10] LABS: Total Iron Binding Capacity 284 ug/dl (261-462)
[2024-10-31 11:11] VITALS: BP 123/62
[2024-10-31 15:48] VITALS: BP 125/55
--- NOTE | 2024-10-31 16:23 | CM ---
Alert awake oriented patient who lives with his [place] in a 1 story home with 4 steps to enter. He is independent in driving and in all activities of daily living.He was offered VN he declined need.He has oxygen with [employer] and a cane.
No VN hx / No SNF history
Pharmacy [facility]
PCP DR Binh Beltre
PLAN Home Declined VN
[2024-10-31] MEDS: PACERONE 200 MG PO (17:29)
[2024-10-31] MEDS: LIPITOR 40 MG PO (17:30)
[2024-10-31] MEDS: FOLVITE 1 MG PO (17:30)
[2024-10-31] MEDS: FEOSOL 325 MG PO (17:30)
[2024-10-31 19:24] VITALS: BP 121/66
[2024-10-31 23:42] VITALS: BP 132/60
[2024-11-01] VITALS (7 sets, daily range): BP systolic 108–130; BP diastolic 51–63; PULSE 80; O2SAT 98; BMI 30.9
[2024-11-01] MEDS: SYNTHROID 75 MCG PO (05:28)
[2024-11-01 07:33] LABS: Hematocrit 30.5 % (39.0-52.0); Hemoglobin 9.9 g/dL (13.0-18.0); Mean Corp Hgb Conc. 32.5 g/dL (33.0-37.0); Mean Corpuscular Volume 100.7 fL (80.0-94.0); Platelet Count 398 10^3/uL (130-400); Red Cell Dist. Width 15.2 % (11.5-14.5)
[2024-11-01 07:46] LABS: ALT (SGPT) 30 U/L (0-50); AST (SGOT) 37 U/L (17-59); Albumin 3.8 g/dl (3.5-5.0); Alkaline Phosphatase 80 U/L (38-126); Blood Urea Nitrogen 33 mg/dl (9-20); Calcium 9.4 mg/dl (8.4-10.2); Carbon Dioxide 33 mmol/L (22-30); Chloride 95 mmol/L (98-107); Estimated Creatinine Clearance 41 ml/min; Glucose 115 mg/dl (70-99); Potassium 3.3 mmol/L (3.5-5.1); Sodium 136 mmol/L (135-145); Total Protein 6.5 g/dl (6.3-8.2); eGFR > 60.00
[2024-11-01] MEDS: KCL 40 MEQ PO (09:28)
[2024-11-01] MEDS: ELIQUIS 5 MG PO ×2 (09:33→20:54)
[2024-11-01] MEDS: LASIX 40 MG IV ×2 (09:33→16:15)
[2024-11-01] MEDS: FARXIGA 5 MG PO (09:33)
--- NOTE | 2024-11-01 12:07 | W.PN.HOSP.TC ---
Today's Communication/Plan
-
Continue with IV Lasix
May need to consider right heart cath if not much improvement
Monitor creatinine closely
Wean oxygen as tolerated
Trial of bronchodilators
Assessment / Plan
Assessment / Plan
Physical Exam
General: Comfortable and Conversant
HEENT: Anicteric, Moist mucous membranes and Oxygen (Nasal Cannula)
Respiratory: Diffuse Rales and Non Labored Respirations
Cardiac: S1/S2 and Regular Rhythm; No Tachycardia
GI: Soft and Non Tender
Rectal: Deferred by Provider
Musculoskeletal: No Clubbing, No Cyanosis and Other (+3 pitting edema bilateral lower extremity )
Skin: Warm and Dry
Neuro: Awake, Alert, Oriented and Nonfocal/grossly intact
Psych: Calm
Acute Hypoxic Respiratory failure secondary to suspected acute on Chronic HFrEF
-Echo August 2024: Moderately reduced left ventricular systolic function. Global Hypokinesis with EF 35-40%. Stage II diastolic dysfunction. Moderate mitral regurgitation. Moderate aortic stenosis
-Cardiology following.
-Continue Lasix 40mg switched to BID. Monitor creatinine closely. Requires invasive monitoring.
-Continue empagliflozin
-Monitor Is&Os and Daily Weights. If admission weight accurate patient seems to be losing weight.
-Continue supplemental oxygen - wean as able
-Wean o2 as tolerated; Goal O2>92%
-CT chest with persistent interstitial edema.
�May benefit from pulmonary, PFTs outpatient
�May also benefit from right heart cath depending on improvement of diuresis in next 24 hours.
#Acute on Chronic HFrEF (EF 35-40% on echo 09/01/24)
Lasix as above
-GDMT:
-RICH/ARB/ARNI:limited by hypotension
-SGLTi: empagliflozin
-MRA:limited by hypotension
-BB:limited by hypotension
-Diuretic:40iv BID
CAD
Elevated Troponin, likely non-ischemic myocardial injury in setting of acute heart failure and acute hypoxia
-trops flat
- no longer need to trend
Paroxysmal Atrial Fibrillation s/p Permanent Pacemaker
-Continue amiodarone for rhythm
-Continue Eliquis
Chronic Hypotension
-Continue midodrine
Hyperlipidemia
-Continue atorvastatin
Hypothyroidism
-Continue levothyroxine
Anemia
Iron Deficiency Anemia
MCV elevated
-add on Iron sat
-already on ferrous sulfate
-monitor hgb
-F/u TSH w/ reflex free t4. TSH wnl.
-B12, folate WNL
�Primary care screening outpatient
History of tobacco abuse
DVT proph: Eliquis
Code Status: DNR
Discussed with patient spouse at bedside in details.
PT eval
Anticipated Discharge: > 48 hours
Subjective/Interval History
-
Date of Service: November 01, 2024
Remains on oxygenation.
States some mild improvement in breathing
States remains with lower extremity edema.
Objective Data
-
Labs:
Laboratory Results
11/01/24
07:00
WBC 8.2
Hgb 9.9 L
Hct 30.5 L
Plt Count 398
Sodium 136
Potassium 3.3 L
Chloride 95 L
Carbon Dioxide 33 H
BUN 33 H
Creatinine 1.1
Glucose 115 H
Calcium 9.4
Total Bilirubin 1.2
AST 37
ALT 30
Alkaline Phosphatase 80
Vital Signs:
Vital Signs
Temp Pulse Resp BP Pulse Ox
98.5 F 71 20 120/59 96
11/01/24 07:20 11/01/24 07:20 11/01/24 07:20 11/01/24 07:20 11/01/24 09:40
I&O
10/31/24 11/01/24 11/02/24
06:59 06:59 06:59
Intake Total 1440 / 1440 840 / 840 240 / 240
Output Total 1210 / 1210 1850 / 1850
Balance 230 / 230 -1010 / -1010 240 / 240
Data Reviewed
-
Total Time Spent with Patient (in minutes): 55
--- NOTE | 2024-11-01 16:08 | W.PN.CD ---
Today's Communication / Plan
-
- Continue Lasix 40 mg IV BID.
Impression / Plan
-
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
- BNP >27,000.
- Continue Lasix 40 mg IV BID; requires intensive monitoring.
- Not on Toprol secondary to blood pressure limitations (on midodrine).
- Continue Farxiga.
GDMT:
-RICH/ARB/ARNI: limited by hypotension
-SGLTi: Currently on Farxiga
-MRA:limited by hypotension
-BB:limited by hypotension
-Diuretic: Lasix 40 mg IV BID
CAD -remains stable w/o angina.
- s/p PCI with MITZI to RCA in 09/2019.
-Continue atorvastatin.
Afib - paroxysmal.
- Atrial fibrillation, V paced
-Continue amiodarone and Eliquis.
- [id number] VASC score is 5.
PPM - DC Medtronic device.
- Remains stable with normal function, V paced.
-Continue routine follow-up at device clinic.
Valvular heart disease - moderate , moderate MR, mild AR on echo 09/01/24.
- Continue diuresis as above.
- No need to repeat echo.
Acute Non-ischemic myocardial injury due to acute hypoxic resp failure/CHF
- peak trop 0.083
Physical Exam
Vital Signs/Labs
Vital Signs
Temp Pulse Resp BP Pulse Ox
97.7 F 72 20 110/60 98
11/01/24 12:16 11/01/24 12:16 11/01/24 12:16 11/01/24 12:16 11/01/24 12:30
10/31/24 11/01/24 11/02/24
06:59 06:59 06:59
Actual Weight 74.417 kg 74.253 kg
11/01/24 07:00
11/01/24 07:00
Magnesium 2.1 mg/dl (1.6-2.3) 10/30/24 05:56
10/29/24
17:17
Bsh-F-Emlilyfzrta Pept > 51623
LAB Results
10/29/24 10/29/24 10/30/24
17:17 21:29 03:39
Troponin I 0.080 H* 0.083 H* 0.074 H*
Physical Exam
Constitutional: No acute distress and Comfortable
EENT: Anicteric
Cardiovascular: Rhythm & rate is regular, Pedal edema present (1-2+), Systolic murmur present (2/6), S1S2 is normal and Rub absent
Respiratory: Respiratory effort normal and Rhonchi Present (Bibasilar)
GI: Soft
Neuro/Psych: AO x 3
Other: Skin (warm)
Data Reviewed
-
Date of Service: November 01, 2024
EKG: Tracing Personally Visualized and interpreted (Telemetry: A-fib, V paced)
Echo: Tracing Personally Visualized and interpreted (09/03/2024: LVEF 35-40%; moderate /MR.)
Labs: Labs Reviewed by me
[2024-11-01] MEDS: KCL 20 MEQ PO (16:15)
[2024-11-01] MEDS: DUONEB 3 ML INH ×2 (16:32→19:42)
[2024-11-01] MEDS: PACERONE 200 MG PO (17:09)
[2024-11-01] MEDS: FEOSOL 325 MG PO (17:09)
[2024-11-01] MEDS: LIPITOR 40 MG PO (17:10)
[2024-11-01] MEDS: FOLVITE 1 MG PO (17:10)
[2024-11-02 03:18] VITALS: BP 112/49
[2024-11-02] MEDS: SYNTHROID 75 MCG PO (05:58)
[2024-11-02 06:00] VITALS: BMI 30.7
[2024-11-02 07:19] LABS: Hematocrit 27.5 % (39.0-52.0); Hemoglobin 9.1 g/dL (13.0-18.0); Mean Corp Hgb Conc. 33.1 g/dL (33.0-37.0); Mean Corpuscular Volume 100.4 fL (80.0-94.0); Platelet Count 386 10^3/uL (130-400); Red Cell Dist. Width 15.3 % (11.5-14.5)
[2024-11-02] MEDS: DUONEB 3 ML INH ×4 (07:24→19:31)
[2024-11-02 07:45] VITALS: BP 111/46
[2024-11-02] MEDS: FARXIGA 5 MG PO (08:35)
[2024-11-02 09:13] LABS: Blood Urea Nitrogen 29 mg/dl (9-20); Calcium 8.7 mg/dl (8.4-10.2); Carbon Dioxide 35 mmol/L (22-30); Chloride 94 mmol/L (98-107); Estimated Creatinine Clearance 41 ml/min; Glucose 97 mg/dl (70-99); Magnesium 2.2 mg/dl (1.6-2.3); Potassium 3.8 mmol/L (3.5-5.1); Sodium 136 mmol/L (135-145); eGFR > 60.00
[2024-11-02] MEDS: KCL 20 MEQ PO ×2 (09:23→17:18)
[2024-11-02] MEDS: LASIX 40 MG IV ×2 (09:31→17:20)
[2024-11-02] MEDS: ELIQUIS PO (10:01)
--- NOTE | 2024-11-02 10:01 | W.PN.CD ---
Today's Communication / Plan
-
Continue IV diuresis
Impression / Plan
-
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
- BNP >27,000.
- Continue Lasix 40 mg IV BID; requires intensive monitoring.
- Not on Toprol secondary to blood pressure limitations (on midodrine).
- Continue Farxiga.
GDMT:
-RICH/ARB/ARNI: limited by hypotension
-SGLTi: Currently on Farxiga
-MRA:limited by hypotension
-BB:limited by hypotension
-Diuretic: Lasix 40 mg IV BID
CAD -remains stable w/o angina.
- s/p PCI with MITZI to RCA in 09/2019.
-Continue atorvastatin.
Afib - paroxysmal.
- Atrial fibrillation, V paced
-Continue amiodarone and Eliquis.
- [id number] VASC score is 5.
PPM - DC Medtronic device.
- Remains stable with normal function, V paced.
-Continue routine follow-up at device clinic.
Valvular heart disease - moderate , moderate MR, mild AR on echo 09/01/24.
- Continue diuresis as above.
- No need to repeat echo.
Acute Non-ischemic myocardial injury due to acute hypoxic resp failure/CHF
- peak trop 0.083
Subjective: Has a nosebleed. Otherwise feels much improved compared to admission.
Physical Exam
Vital Signs/Labs
Vital Signs
Temp Pulse Resp BP Pulse Ox
97.7 F 79 16 111/46 99
11/02/24 07:45 11/02/24 08:35 11/02/24 07:45 11/02/24 08:35 11/02/24 07:45
11/01/24 11/02/24 11/03/24
06:59 06:59 06:59
Actual Weight 163 lb 11.2 oz 162 lb 7 oz
11/02/24 06:26
11/02/24 06:26
Magnesium 2.2 mg/dl (1.6-2.3) 11/02/24 06:26
10/29/24
17:17
Qqz-H-Fscnceiqohp Pept > 36441
Physical Exam
Constitutional: No acute distress and Comfortable
Cardiovascular: Rhythm & rate is regular, Pedal edema present, Systolic murmur present and S1S2 is normal
Respiratory: Respiratory effort normal (decreased breath sounds bilaterally, scattered wheezes)
Neuro/Psych: AO x 3
Data Reviewed
-
Date of Service: November 02, 2024
Medical Decision Making: Reviewed Test Results, Independent Historian Assessment, Test Interpretation and Review of Case with other Provider
EKG: Tracing Personally Visualized and interpreted
Echo: Report Reviewed by me
Labs: Labs Reviewed by me
--- NOTE | 2024-11-02 10:33 | W.PN.HOSP.TC ---
Today's Communication/Plan
-
duoneb
IV lasix
wean o2-humidfied
trend cr
Assessment / Plan
Assessment / Plan
Physical Exam
General: Comfortable and Conversant
HEENT: Anicteric, Moist mucous membranes and Oxygen (Nasal Cannula)
Respiratory: Diffuse Rales and Non Labored Respirations-significant improvement
Cardiac: S1/S2 and Regular Rhythm; No Tachycardia
GI: Soft and Non Tender
Rectal: Deferred by Provider
Musculoskeletal: No Clubbing, No Cyanosis and Other (+2 pitting edema bilateral lower extremity )
Skin: Warm and Dry
Neuro: Awake, Alert, Oriented and Nonfocal/grossly intact
Psych: Calm
Acute Hypoxic Respiratory failure secondary to suspected acute on Chronic HFrEF
-Echo August 2024: Moderately reduced left ventricular systolic function. Global Hypokinesis with EF 35-40%. Stage II diastolic dysfunction. Moderate mitral regurgitation. Moderate aortic stenosis
-Cardiology following.
-Continue Lasix 40mg switched to BID. Monitor creatinine closely. Requires invasive monitoring.
-Continue empagliflozin
-Monitor Is&Os and Daily Weights. If admission weight accurate patient seems to be losing weight.
-Continue supplemental oxygen - wean as able
-Wean o2 as tolerated; Goal O2>92%
-CT chest with persistent interstitial edema.
�May benefit from pulmonary, PFTs outpatient
�May also benefit from right heart cath depending on improvement of diuresis in next 24 hours.
-significant improvement with duoneb. cont for now.
#Acute on Chronic HFrEF (EF 35-40% on echo 09/01/24)
Lasix as above
-GDMT:
-RICH/ARB/ARNI:limited by hypotension
-SGLTi: empagliflozin
-MRA:limited by hypotension
-BB:limited by hypotension
-Diuretic:40iv BID
#Epitastaxis
-hx of it. Holding Eliquis for now. restart if no further episode
-wean o2 as tolerated. try humidified o2.
CAD
Elevated Troponin, likely non-ischemic myocardial injury in setting of acute heart failure and acute hypoxia
-trops flat
- no longer need to trend
Paroxysmal Atrial Fibrillation s/p Permanent Pacemaker
-Continue amiodarone for rhythm
-Continue Eliquis
Chronic Hypotension
-Continue midodrine
Hyperlipidemia
-Continue atorvastatin
Hypothyroidism
-Continue levothyroxine
Anemia
Iron Deficiency Anemia
MCV elevated
-add on Iron sat
-already on ferrous sulfate
-monitor hgb
-F/u TSH w/ reflex free t4. TSH wnl.
-B12, folate WNL
�Primary care screening outpatient
History of tobacco abuse
DVT proph: Eliquis
Code Status: DNR
Discussed with patient spouse at bedside in details.
PT eval
d/w with cardiology
Anticipated Discharge: > 48 hours
Subjective/Interval History
-
Date of Service: November 02, 2024
episode of epitaxis-resolved
on 1L oxygen
Objective Data
-
Labs:
Laboratory Results
11/02/24
06:26
WBC 7.2
Hgb 9.1 L
Hct 27.5 L
Plt Count 386
Sodium 136
Potassium 3.8
Chloride 94 L
Carbon Dioxide 35 H
BUN 29 H
Creatinine 1.1
Glucose 97
Calcium 8.7
Vital Signs:
Vital Signs
Temp Pulse Resp BP Pulse Ox
97.7 F 79 16 111/46 99
11/02/24 07:45 11/02/24 08:35 11/02/24 07:45 11/02/24 08:35 11/02/24 07:45
I&O
11/01/24 11/02/24 11/03/24
06:59 06:59 06:59
Intake Total 840 / 840 1200 / 1200
Output Total 1850 / 1850 1450 / 1450
Balance -1010 / -1010 -250 / -250
Data Reviewed
-
Total Time Spent with Patient (in minutes): 55
[2024-11-02 11:25] VITALS: BP 112/62
[2024-11-02 15:05] VITALS: BP 124/66
[2024-11-02] MEDS: FOLVITE 1 MG PO (17:18)
[2024-11-02] MEDS: LIPITOR 40 MG PO (17:18)
[2024-11-02] MEDS: FEOSOL 325 MG PO (17:18)
[2024-11-02] MEDS: PACERONE 200 MG PO (17:19)
[2024-11-02 19:55] VITALS: BP 109/57
[2024-11-02 23:32] VITALS: BP 102/45
[2024-11-03 03:44] VITALS: BP 108/49
[2024-11-03] MEDS: SYNTHROID 75 MCG PO (05:43)
[2024-11-03 06:00] VITALS: BMI 30.7
[2024-11-03 07:40] VITALS: BP 113/57
[2024-11-03 07:57] LABS: Hematocrit 26.8 % (39.0-52.0); Hemoglobin 8.7 g/dL (13.0-18.0); Mean Corp Hgb Conc. 32.5 g/dL (33.0-37.0); Mean Corpuscular Volume 99.6 fL (80.0-94.0); Platelet Count 408 10^3/uL (130-400); Red Cell Dist. Width 15.5 % (11.5-14.5)
[2024-11-03] MEDS: DUONEB 3 ML INH ×3 (08:10→15:14)
[2024-11-03 08:29] LABS: Blood Urea Nitrogen 33 mg/dl (9-20); Calcium 8.8 mg/dl (8.4-10.2); Carbon Dioxide 34 mmol/L (22-30); Chloride 97 mmol/L (98-107); Estimated Creatinine Clearance 41 ml/min; Glucose 94 mg/dl (70-99); Potassium 3.6 mmol/L (3.5-5.1); Sodium 135 mmol/L (135-145); eGFR > 60.00
[2024-11-03 09:02] LABS: Iron 24 ug/dl (49-181)
[2024-11-03 09:11] LABS: Total Iron Binding Capacity 262 ug/dl (261-462)
[2024-11-03] MEDS: KCL 20 MEQ PO ×2 (09:24→17:15)
[2024-11-03] MEDS: FARXIGA 5 MG PO (09:24)
[2024-11-03] MEDS: LASIX 40 MG IV (09:25)
--- NOTE | 2024-11-03 09:56 | W.PN.CD ---
Today's Communication / Plan
-
Increase Lasix to 80 IV BID given stable weight and not much symptomatic improvement
Impression / Plan
-
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
- BNP >27,000.
- Increase Lasix to 80 mg IV BID; requires intensive monitoring.
- Not on Toprol secondary to blood pressure limitations (on midodrine).
- Continue Farxiga.
GDMT:
-RICH/ARB/ARNI: limited by hypotension
-SGLTi: Currently on Farxiga
-MRA:limited by hypotension
-BB:limited by hypotension
-Diuretic: as above
CAD -remains stable w/o angina.
- s/p PCI with MITZI to RCA in 09/2019.
-Continue atorvastatin.
Afib - paroxysmal.
- Atrial fibrillation, V paced
-Continue amiodarone and Eliquis.
- [id number] VASC score is 5.
PPM - DC Medtronic device.
- Remains stable with normal function, V paced.
-Continue routine follow-up at device clinic.
Valvular heart disease - moderate , moderate MR, mild AR on echo 09/01/24.
- Continue diuresis as above.
- No need to repeat echo.
Acute Non-ischemic myocardial injury due to acute hypoxic resp failure/CHF
- peak trop 0.083
Subjective: No change in symptoms from yesterday. Still requiring supplemental O2.
Physical Exam
Vital Signs/Labs
Vital Signs
Temp Pulse Resp BP Pulse Ox
98.0 F 82 18 113/57 95
11/03/24 07:40 11/03/24 09:25 11/03/24 08:12 11/03/24 09:25 11/03/24 08:12
07/07/25 07/08/25 07/09/25
06:59 06:59 06:59
Actual Weight 162 lb 7 oz 162 lb 7 oz
11/03/24 07:25
11/03/24 07:25
Magnesium 2.2 mg/dl (1.6-2.3) 11/02/24 06:26
10/29/24
17:17
Uka-Q-Dvbtngujqar Pept > [id number]
Physical Exam
Constitutional: No acute distress and Comfortable
Cardiovascular: Rhythm & rate is regular, Pedal edema present, S1S2 is normal and Murmur/rub/gallop absent
Respiratory: Respiratory effort normal and Crackles Present
Neuro/Psych: AO x 3
Data Reviewed
-
Date of Service: November 03, 2024
Medical Decision Making: Reviewed Test Results, Independent Historian Assessment, Test Interpretation and Review of Case with other Provider
EKG: Tracing Personally Visualized and interpreted
Echo: Report Reviewed by me
Labs: Labs Reviewed by me
[2024-11-03 10:30] LABS: Ferritin 258.0 ng/ml (17.9-464.0)
[2024-11-03 11:01] LABS: Folate > 20.0 ng/ml (2.76-20); Vitamin B12 > 1000 pg/ml (239-931)
[2024-11-03 11:30] VITALS: BP 121/61
--- NOTE | 2024-11-03 11:46 | W.PN.HOSP.TC ---
Today's Communication/Plan
-
Monitor vital signs see plan
Wean oxygen as tolerated
Would need home O2 evaluation prior to discharge
Continue with IV Lasix, increase to 80 mg twice daily
Restart Eliquis and nose bleed improved
Assessment / Plan
Assessment / Plan
Physical Exam
General: Comfortable and Conversant
HEENT: Anicteric, Moist mucous membranes and Oxygen (Nasal Cannula)
Respiratory: Diffuse Rales and Non Labored Respirations-significant improvement
Cardiac: S1/S2 and Regular Rhythm; No Tachycardia
GI: Soft and Non Tender
Musculoskeletal: Other (+2 pitting edema bilateral lower extremity )
Neuro: Awake, Alert, Oriented and Nonfocal/grossly intact
Psych: Calm
Acute Hypoxic Respiratory failure secondary to suspected acute on Chronic HFrEF
-Echo August 2024: Moderately reduced left ventricular systolic function. Global Hypokinesis with EF 35-40%. Stage II diastolic dysfunction. Moderate mitral regurgitation. Moderate aortic stenosis
-Cardiology following.
- Discussed with cardiology, increase Lasix to 80 mg twice daily. Monitor creatinine closely. Requires invasive monitoring.
-Continue empagliflozin
-Monitor Is&Os and Daily Weights. If admission weight accurate patient seems to be losing weight.
-Continue supplemental oxygen - wean as able
-Wean o2 as tolerated; Goal O2>92%
-CT chest with persistent interstitial edema.
�May benefit from pulmonary, PFTs outpatient
�May also benefit from right heart cath depending on improvement of diuresis
DuoNeb as needed
#Acute on Chronic HFrEF (EF 35-40% on echo 09/01/24)
Lasix as above
-GDMT:
-RICH/ARB/ARNI:limited by hypotension
-SGLTi: empagliflozin
-MRA:limited by hypotension
-BB:limited by hypotension
-Diuretic:40iv BID
#Epitastaxis
-hx of it. Holding Eliquis for now. restart if no further episode
-wean o2 as tolerated
CAD
Elevated Troponin, likely non-ischemic myocardial injury in setting of acute heart failure and acute hypoxia
-trops flat
- no longer need to trend
Paroxysmal Atrial Fibrillation s/p Permanent Pacemaker
-Continue amiodarone for rhythm
-Continue Eliquis
Chronic Hypotension
-Continue midodrine
Hyperlipidemia
-Continue atorvastatin
Hypothyroidism
-Continue levothyroxine
Anemia, anemia of chronic disease
Iron Deficiency Anemia
MCV elevated
-already on ferrous sulfate
-monitor hgb
-F/u TSH w/ reflex free t4. TSH wnl.
-B12, folate WNL
�Primary care screening outpatient
History of tobacco abuse
DVT proph: Eliquis
Code Status: DNR
PT
I spent a total of 53 minutes with the patient or on the floor. More than 50% of this time involved counseling and coordination of care.
Anticipated Discharge: 24 - 48 hours
Subjective/Interval History
-
Date of Service: November 03, 2024
Denies chest pain
Objective Data
-
Labs:
Laboratory Results
11/03/24
07:25
WBC 7.7
Hgb 8.7 L
Hct 26.8 L
Plt Count 408 H
Sodium 135
Potassium 3.6
Chloride 97 L
Carbon Dioxide 34 H
BUN 33 H
Creatinine 1.1
Glucose 94
Calcium 8.8
Vital Signs:
Vital Signs
Temp Pulse Resp BP Pulse Ox
98.0 F 96 18 113/57 97
11/03/24 07:40 11/03/24 11:17 11/03/24 11:17 11/03/24 09:25 11/03/24 11:17
I&O
11/02/24 11/03/24 11/04/24
06:59 06:59 06:59
Intake Total 1200 / 1200 360 / 360
Output Total 1450 / 1450 1325 / 1325
Balance -250 / -250 -965 / -965
--- NOTE | 2024-11-03 12:26 | CM ---
Chart reviewed. Care ongoing at this time.
Patient remains on 2L O2. Will need home O2 assessment prior to d/c
Therapy rec home health vs OP therapy. Patient declined HH previously, will offer again prior to d/c
CM will cont to follow for d/c needs
Plan: Home, will watch for O2 needs
[2024-11-03 15:30] VITALS: BP 111/57
[2024-11-03] MEDS: FOLVITE 1 MG PO (17:14)
[2024-11-03] MEDS: LIPITOR 40 MG PO (17:14)
[2024-11-03] MEDS: FEOSOL 325 MG PO (17:15)
[2024-11-03] MEDS: PACERONE 200 MG PO (17:15)
[2024-11-03] MEDS: LASIX 80 MG IV (17:15)
[2024-11-03] MEDS: ELIQUIS 5 MG PO (19:45)
[2024-11-03 19:51] VITALS: BP 115/59
[2024-11-03 23:14] VITALS: BP 116/47
[2024-11-04] VITALS (7 sets, daily range): BP systolic 97–117; BP diastolic 48–66; BMI 30.5
[2024-11-04] MEDS: SYNTHROID 75 MCG PO (05:20)
[2024-11-04 07:13] LABS: Hematocrit 26.4 % (39.0-52.0); Hemoglobin 8.6 g/dL (13.0-18.0); Mean Corp Hgb Conc. 32.6 g/dL (33.0-37.0); Mean Corpuscular Volume 98.9 fL (80.0-94.0); Platelet Count 423 10^3/uL (130-400); Red Cell Dist. Width 15.6 % (11.5-14.5)
[2024-11-04 07:37] LABS: Blood Urea Nitrogen 28 mg/dl (9-20); Calcium 9.0 mg/dl (8.4-10.2); Carbon Dioxide 35 mmol/L (22-30); Chloride 95 mmol/L (98-107); Estimated Creatinine Clearance 41 ml/min; Glucose 88 mg/dl (70-99); Potassium 4.1 mmol/L (3.5-5.1); Sodium 135 mmol/L (135-145); eGFR > 60.00
[2024-11-04] MEDS: KCL 20 MEQ PO ×2 (08:48→16:51)
[2024-11-04] MEDS: ELIQUIS 5 MG PO ×2 (08:48→20:11)
[2024-11-04] MEDS: FARXIGA 5 MG PO (08:48)
[2024-11-04] MEDS: LASIX 80 MG IV ×2 (08:48→16:51)
--- NOTE | 2024-11-04 10:19 | W.PN.CD ---
Today's Communication / Plan
-
continue IV diuresis with intensive monitoring
add tubigrips
Impression / Plan
-
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
- BNP >27,000.
- Continue Lasix to 80 mg IV BID; requires intensive monitoring.
- Not on Toprol secondary to blood pressure limitations (on midodrine).
- Continue Farxiga.
GDMT:
-RICH/ARB/ARNI: limited by hypotension
-SGLTi: Currently on Farxiga
-MRA:limited by hypotension
-BB:limited by hypotension
-Diuretic: as above
-add tubigrip
CAD -remains stable w/o angina.
- s/p PCI with MITZI to RCA in 09/2019.
-Continue atorvastatin.
Afib - paroxysmal.
- Atrial fibrillation, V paced
-Continue amiodarone and Eliquis.
- [id number] VASC score is 5.
PPM - DC Medtronic device.
- Remains stable with normal function, V paced.
-Continue routine follow-up at device clinic.
Valvular heart disease - moderate , moderate MR, mild AR on echo 09/01/24.
- Continue diuresis as above.
- No need to repeat echo.
Acute Non-ischemic myocardial injury due to acute hypoxic resp failure/CHF
- peak trop 0.083
Subjective: he is feeling better, but still on o2, he is worried to come off
Physical Exam
Vital Signs/Labs
Vital Signs
Temp Pulse Resp BP Pulse Ox
97.4 F 90 16 112/57 99
11/04/24 08:04 11/04/24 08:04 11/04/24 08:04 11/04/24 08:04 11/04/24 08:30
11/03/24 11/04/2425
06:59 06:59 06:59
Actual Weight 162 lb 7 oz 161 lb 7 oz
11/04/24 06:50
11/04/24 06:50
Magnesium 2.2 mg/dl (1.6-2.3) 11/02/24 06:26
10/29/24
17:17
Yxn-H-Fidjejtmlra Pept > 15874
Physical Exam
Constitutional: No acute distress
Cardiovascular: Rhythm & rate is regular, Systolic murmur absent, Diastolic murmur absent and Pedal edema present (1+ b/l )
Respiratory: Respiratory effort normal and Rhonchi Present (bibasilar with exp squeak as well)
Neuro/Psych: AO x 3
Data Reviewed
-
Date of Service: November 04, 2024
Medical Decision Making: Review of Case with other Provider (Dr Cameron, continue IV diuresis)
--- NOTE | 2024-11-04 11:08 | W.PN.HOSP.TC ---
Today's Communication/Plan
-
Monitor vital signs see plan
Discussed with cardiology, still with persistent fluid overload. Will continue with 80 IV twice daily Lasix
Monitor renal function
Continue Eliquis
2 L O2
Assessment / Plan
Assessment / Plan
Physical Exam
General: Comfortable and Conversant
HEENT: Anicteric, Moist mucous membranes and Oxygen (Nasal Cannula)
Respiratory: Diffuse Rales and Non Labored Respirations-significant improvement
Cardiac: S1/S2 and Regular Rhythm; No Tachycardia
GI: Soft and Non Tender
Musculoskeletal: Other (+2 pitting edema bilateral lower extremity )
Neuro: Awake, Alert, Oriented and Nonfocal/grossly intact
Psych: Calm
Acute on chronic hypoxic Respiratory failure secondary to suspected acute on Chronic HFrEF
Discussed with patient, at baseline he is on continuous 2 L oxygen which was recently started on his previous hospitalization at [facility]
-Echo August 2024: Moderately reduced left ventricular systolic function. Global Hypokinesis with EF 35-40%. Stage II diastolic dysfunction. Moderate mitral regurgitation. Moderate aortic stenosis
-Cardiology following.
- Discussed with cardiology, increase Lasix to 80 mg twice daily. Monitor creatinine closely. Requires invasive monitoring.
-Continue empagliflozin
-Monitor Is&Os and Daily Weights. If admission weight accurate patient seems to be losing weight.
-Continue supplemental oxygen - wean as able
Continue with 2 L O2
-CT chest with persistent interstitial edema.
�May benefit from pulmonary, PFTs outpatient
�May also benefit from right heart cath depending on improvement of diuresis
DuoNeb as needed
#Acute on Chronic HFrEF (EF 35-40% on echo 09/01/24)
Lasix as above
-GDMT:
-RICH/ARB/ARNI:limited by hypotension
-SGLTi: empagliflozin
-MRA:limited by hypotension
-BB:limited by hypotension
-Diuretic:80iv BID
#Epistaxis
-hx of it. Symptoms resolved, restarted Eliquis
CAD
Elevated Troponin, likely non-ischemic myocardial injury in setting of acute heart failure and acute hypoxia
-trops flat
- no longer need to trend
Paroxysmal Atrial Fibrillation s/p Permanent Pacemaker
-Continue amiodarone for rhythm
-Continue Eliquis
Chronic Hypotension
-Continue midodrine
Hyperlipidemia
-Continue atorvastatin
Hypothyroidism
-Continue levothyroxine
Anemia, anemia of chronic disease
Iron Deficiency Anemia
MCV elevated
-already on ferrous sulfate
-monitor hgb
-F/u TSH w/ reflex free t4. TSH wnl.
-B12, folate WNL
�Primary care screening outpatient
History of tobacco abuse
DVT proph: Eliquis
Code Status: DNR
PT
I spent a total of 52 minutes with the patient or on the floor. More than 50% of this time involved counseling and coordination of care.
Anticipated Discharge: 24 - 48 hours
Subjective/Interval History
-
Date of Service: November 04, 2024
Denies chest pain
Objective Data
-
Labs:
Laboratory Results
11/04/24
06:50
WBC 7.9
Hgb 8.6 L
Hct 26.4 L
Plt Count 423 H
Sodium 135
Potassium 4.1
Chloride 95 L
Carbon Dioxide 35 H
BUN 28 H
Creatinine 1.1
Glucose 88
Calcium 9.0
Vital Signs:
Vital Signs
Temp Pulse Resp BP Pulse Ox
97.4 F 90 16 112/57 99
11/04/24 08:04 11/04/24 08:04 11/04/24 08:04 11/04/24 08:04 11/04/24 08:30
I&O
0711/04/24 11/05/24
06:59 06:59 06:59
Intake Total 360 / 360 1140 / 1140 180 / 180
Output Total 1325 / 1325 2024
Balance -965 / -965 -885 / -885 180 / 180
[2024-11-04] MEDS: DUONEB 3 ML INH ×2 (14:05→19:23)
[2024-11-04] MEDS: PACERONE 200 MG PO (17:56)
[2024-11-04] MEDS: LIPITOR 40 MG PO (17:56)
[2024-11-04] MEDS: FEOSOL 325 MG PO (17:56)
[2024-11-04] MEDS: FOLVITE 1 MG PO (17:56)
[2024-11-05 03:30] VITALS: BP 122/59
[2024-11-05] MEDS: SYNTHROID 75 MCG PO (05:40)
[2024-11-05 05:46] VITALS: BMI 30.5
[2024-11-05 07:35] LABS: Hematocrit 26.1 % (39.0-52.0); Hemoglobin 8.5 g/dL (13.0-18.0); Mean Corp Hgb Conc. 32.6 g/dL (33.0-37.0); Mean Corpuscular Volume 97.8 fL (80.0-94.0); Nucleated Red Blood Cells % 0 % (-); Platelet Count 451 10^3/uL (130-400); Red Cell Dist. Width 15.6 % (11.5-14.5)
--- NOTE | 2024-11-05 07:36 | W.PN.HOSP.TC ---
Today's Communication/Plan
-
IV Lasix
Assessment / Plan
Assessment / Plan
Physical Exam
General: Comfortable and Conversant
HEENT: Anicteric, Moist mucous membranes and Oxygen (Nasal Cannula)
Respiratory: Diffuse Rales and Non Labored Respirations-significant improvement
Cardiac: S1/S2 and Regular Rhythm; No Tachycardia
GI: Soft and Non Tender
Musculoskeletal: Other (+2 pitting edema bilateral lower extremity )
Neuro: Awake, Alert, Oriented and Nonfocal/grossly intact
Psych: Calm
A/P:
Acute on chronic hypoxic Respiratory failure secondary to suspected acute on Chronic HFrEF
Discussed with patient, at baseline he is on continuous 2 L oxygen which was recently started on his previous hospitalization at [facility]
-Echo August 2024: Moderately reduced left ventricular systolic function. Global Hypokinesis with EF 35-40%. Stage II diastolic dysfunction. Moderate mitral regurgitation. Moderate aortic stenosis
-Cardiology following.
- Continue IV Lasix to 80 mg twice daily. Monitor creatinine closely. Requires invasive monitoring.
-Continue empagliflozin
-Monitor Is&Os and Daily Weights. If admission weight accurate patient seems to be losing weight.
-Continue supplemental oxygen - wean as able
Continue with 2 L O2
-CT chest with persistent interstitial edema.
�May benefit from pulmonary, PFTs outpatient
�May also benefit from right heart cath depending on improvement of diuresis
DuoNeb as needed
- Discussed with at bedside today
#Acute on Chronic HFrEF (EF 35-40% on echo 09/01/24)
Lasix as above
-GDMT:
-RICH/ARB/ARNI:limited by hypotension
-SGLTi: empagliflozin
-MRA:limited by hypotension
-BB:limited by hypotension
-Diuretic:80iv BID
#Epistaxis
-hx of it. Symptoms resolved, restarted Eliquis
CAD
Elevated Troponin, likely non-ischemic myocardial injury in setting of acute heart failure and acute hypoxia
-trops flat
- no longer need to trend
Paroxysmal Atrial Fibrillation s/p Permanent Pacemaker
-Continue amiodarone for rhythm
-Continue Eliquis
Chronic Hypotension
-Continue midodrine
Hyperlipidemia
-Continue atorvastatin
Hypothyroidism
-Continue levothyroxine
Anemia, anemia of chronic disease
Iron Deficiency Anemia
MCV elevated
-already on ferrous sulfate
-monitor hgb
-F/u TSH w/ reflex free t4. TSH wnl.
-B12, folate WNL
�Primary care screening outpatient
History of tobacco abuse
DVT proph: Eliquis
Code Status: DNR
I spent a total of 35 minutes with the patient or on the floor.
Anticipated Discharge: 24 - 48 hours
Subjective/Interval History
-
Date of Service: November 05, 2024
Patient feels better overall. Less shortness of breath. Less peripheral edema. No chest pain
Objective Data
-
Labs:
Laboratory Results
11/05/24
07:13
WBC 7.4
Hgb 8.5 L
Hct 26.1 L
Plt Count 451 H
Sodium Pending
Potassium Pending
Chloride Pending
Carbon Dioxide Pending
BUN Pending
Creatinine Pending
Glucose Pending
Calcium Pending
Vital Signs:
Vital Signs
Temp Pulse Resp BP Pulse Ox
98.7 F 78 18 122/59 97
11/05/24 03:30 11/05/24 03:30 11/05/24 03:30 11/05/24 03:30 11/05/24 03:30
I&O
11/04/24 11/05/24 11/06/24
06:59 06:59 06:59
Intake Total 1140 / 1140 740 / 740
Output Total 2024 1675 / 1675
Balance -885 / -885 -935 / -935
[2024-11-05 07:47] VITALS: BP 116/59
[2024-11-05 08:02] LABS: Blood Urea Nitrogen 28 mg/dl (9-20); Calcium 9.0 mg/dl (8.4-10.2); Carbon Dioxide 33 mmol/L (22-30); Chloride 94 mmol/L (98-107); Estimated Creatinine Clearance 37 ml/min; Glucose 102 mg/dl (70-99); Potassium 4.1 mmol/L (3.5-5.1); Sodium 134 mmol/L (135-145); eGFR 58.53
[2024-11-05] MEDS: LASIX 80 MG IV ×2 (09:07→16:19)
[2024-11-05] MEDS: FARXIGA 5 MG PO (09:07)
[2024-11-05] MEDS: ELIQUIS 5 MG PO ×2 (09:07→20:23)
[2024-11-05] MEDS: KCL 20 MEQ PO ×2 (09:07→16:19)
[2024-11-05 11:06] VITALS: BP 111/57
[2024-11-05] MEDS: DUONEB 3 ML INH ×2 (11:21→19:32)
[2024-11-05 15:41] VITALS: BP 118/62
--- NOTE | 2024-11-05 16:06 | CM ---
Chart reviewed. Plan of care ongoing.
Patient cont on 2L O2, home O2 assessment prior to d/c
IV Lasix
Plan: Home, will watch for O2 needs
--- NOTE | 2024-11-05 17:51 | W.PN.CD ---
Today's Communication / Plan
-
- Continue Lasix 80 mg IV BID.
Impression / Plan
-
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
- BNP >27,000.
- Continue Lasix 80 mg IV BID; requires intensive monitoring.
- Not on Toprol secondary to blood pressure limitations (on midodrine).
- Continue Farxiga.
GDMT:
-RICH/ARB/ARNI: limited by hypotension
-SGLTi: Currently on Farxiga
-MRA:limited by hypotension
-BB:limited by hypotension
-Diuretic: Lasix as above.
CAD -remains stable w/o angina.
- s/p PCI with MITZI to RCA in 09/2019.
-Continue current dose of atorvastatin.
Afib - paroxysmal.
- Atrial fibrillation, V paced
-Continue amiodarone and Eliquis.
- [id number] VASC score is 5.
PPM - DC Medtronic device.
- Stable, normal function, V paced.
- Follow-up at device clinic as scheduled.
Valvular heart disease - moderate , moderate MR, mild AR on echo 09/01/24.
- Continue diuresis as above.
- No need to repeat echo.
Acute Non-ischemic myocardial injury due to acute hypoxic resp failure/CHF
- peak trop 0.083
Physical Exam
Vital Signs/Labs
Vital Signs
Temp Pulse Resp BP Pulse Ox
98.6 F 92 16 118/62 96
11/05/24 15:41 11/05/24 15:41 11/05/24 15:41 11/05/24 15:41 11/05/24 15:41
11/04/24 11/05/24 11/06/24
06:59 06:59 06:59
Actual Weight 73.227 kg 73.198 kg
11/05/24 07:13
11/05/24 07:13
Magnesium 2.2 mg/dl (1.6-2.3) 11/02/24 06:26
10/29/24
17:17
Umm-H-Jodvzipaurw Pept > [id number]
Physical Exam
Constitutional: No acute distress and Comfortable
EENT: Anicteric
Cardiovascular: Rhythm & rate is regular, Pedal edema present (1-2+), Systolic murmur present (2/6) and S1S2 is normal
Respiratory: Respiratory effort normal, Wheeze Present (expiratory) and Crackles Present (bibasilar)
GI: Soft
Neuro/Psych: AO x 3
Other: Skin (warm, dry)
Data Reviewed
-
Date of Service: November 05, 2024
EKG: Tracing Personally Visualized and interpreted (Telemetry: Sinus rhythm/V paced)
Echo: Report Reviewed by me (EF 35-40%)
Medical Tests (PFT, Pathology etc): Discussed with Patient
Labs: Labs Reviewed by me
[2024-11-05] MEDS: PACERONE 200 MG PO (18:01)
[2024-11-05] MEDS: LIPITOR 40 MG PO (18:01)
[2024-11-05] MEDS: FEOSOL 325 MG PO (18:01)
[2024-11-05] MEDS: FOLVITE 1 MG PO (18:01)
[2024-11-05 19:45] VITALS: BP 121/62
[2024-11-05 23:30] VITALS: BP 104/50
[2024-11-06] MEDS: DUONEB 3 ML INH ×2 (01:01→07:25)
[2024-11-06 01:05] VITALS: BP 109/58
[2024-11-06 05:00] VITALS: BP 113/56
[2024-11-06] MEDS: SYNTHROID 75 MCG PO (05:30)
[2024-11-06 06:00] VITALS: BMI 30.2
[2024-11-06 07:19] VITALS: BP 104/54
--- NOTE | 2024-11-06 08:03 | W.PN.HOSP.TC ---
Today's Communication/Plan
-
Discharge planning today
Assessment / Plan
Assessment / Plan
Physical exam:
General: Well Developed, Well Nourished and No Apparent Distress
HEENT: Normocephalic, Atraumatic and Moist Mucous Membranes
Respiratory: Clear to Auscultation; Negative Wheezes, Rales or Rhonchi
Cardiac: Regular Rhythm and S1/S2
GI: Soft, Nontender and Nondistended
Musculoskeletal: No Clubbing, No Cyanosis and some LE Edema
Neuro: Awake, Alert and Oriented, no neurodeficit
Psych: Calm
A/P:
Acute on chronic hypoxic Respiratory failure secondary to suspected acute on Chronic HFrEF
Discussed with patient, at baseline he is on continuous 2 L oxygen which was recently started on his previous hospitalization at [facility]
-Echo August 2024: Moderately reduced left ventricular systolic function. Global Hypokinesis with EF 35-40%. Stage II diastolic dysfunction. Moderate mitral regurgitation. Moderate aortic stenosis
-Cardiology following.
- Change IV Lasix to oral Lasix upon discharge today.
-Continue empagliflozin as outpatient
-Monitor Is&Os and Daily Weights. If admission weight accurate patient seems to be losing weight.
-Continue supplemental oxygen - wean as able
Continue with 2 L O2
-CT chest with persistent interstitial edema.
�May benefit from pulmonary, PFTs outpatient
DuoNeb as needed
- Discussed with at bedside today
- Cardiology cleared him for discharge today
#Acute on Chronic HFrEF (EF 35-40% on echo 09/01/24)
Lasix as above
-GDMT:
-RCIH/ARB/ARNI:limited by hypotension
-SGLTi: empagliflozin
-MRA:limited by hypotension
-BB:limited by hypotension
-Diuretic:80iv BID--> will switch to Lasix 80 mg orally daily upon discharge
#Epistaxis
-hx of it. Symptoms resolved, restarted Eliquis
CAD
Elevated Troponin, likely non-ischemic myocardial injury in setting of acute heart failure and acute hypoxia
-trops flat
- no longer need to trend
Paroxysmal Atrial Fibrillation s/p Permanent Pacemaker
-Continue amiodarone for rhythm
-Continue Eliquis
Chronic Hypotension
-Continue midodrine
Hyperlipidemia
-Continue atorvastatin
Hypothyroidism
-Continue levothyroxine
Anemia, anemia of chronic disease
Iron Deficiency Anemia
MCV elevated
-already on ferrous sulfate
-monitor hgb
-F/u TSH w/ reflex free t4. TSH wnl.
-B12, folate WNL
�Primary care screening outpatient
History of tobacco abuse
DVT proph: Eliquis
Code Status: DNR
Anticipated Discharge: Today
Subjective/Interval History
-
Date of Service: November 06, 2024
Patient feels better today. No shortness of breath
Objective Data
-
Labs:
Laboratory Results
11/06/24
07:31
Sodium Pending
Potassium Pending
Chloride Pending
Carbon Dioxide Pending
BUN Pending
Creatinine Pending
Glucose Pending
Calcium Pending
Vital Signs:
Vital Signs
Temp Pulse Resp BP Pulse Ox
97.7 F 85 18 113/56 93
11/06/24 05:00 11/06/24 07:28 11/06/24 07:28 11/06/24 05:00 11/06/24 07:28
I&O
11/05/24 11/06/24 11/07/24
06:59 06:59 06:59
Intake Total 740 / 740 560 / 560
Output Total 1675 / 1675 2125 / 2125
Balance -935 / -935 -1565 / -1565
[2024-11-06 08:17] LABS: Blood Urea Nitrogen 35 mg/dl (9-20); Calcium 8.7 mg/dl (8.4-10.2); Carbon Dioxide 33 mmol/L (22-30); Chloride 95 mmol/L (98-107); Estimated Creatinine Clearance 37 ml/min; Glucose 122 mg/dl (70-99); Magnesium 2.2 mg/dl (1.6-2.3); Potassium 4.1 mmol/L (3.5-5.1); Sodium 134 mmol/L (135-145); eGFR 58.53
[2024-11-06] MEDS: ELIQUIS 5 MG PO (09:09)
[2024-11-06] MEDS: KCL 20 MEQ PO (09:09)
[2024-11-06] MEDS: FARXIGA 5 MG PO (09:09)
[2024-11-06] MEDS: LASIX 80 MG IV (09:10)
[2024-11-06 11:23] VITALS: BP 116/64
--- NOTE | 2024-11-06 11:25 | W.PN.CD ---
Today's Communication / Plan
-
- Can transition to Lasix 80 mg PO daily, which should be his home regimen.
- Continue other cardiac medications.
- Outpatient follow-up with Cardiology; no further cardiac recommendations at this time (also, patient wants to go home).
Impression / Plan
-
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
- BNP >27,000.
- Can transition to Lasix 80 mg PO daily, which should be his home regimen.
- No beta-rosibel secondary to blood pressure limitations (on midodrine).
- Continue Farxiga.
GDMT:
-RICH/ARB/ARNI: limited by hypotension
-SGLTi: Currently on Farxiga
-MRA:limited by hypotension
-BB:limited by hypotension
-Diuretic: Lasix as above.
CAD -remains stable w/o angina.
- s/p PCI with MITZI to RCA in 09/2019.
- Continue atorvastatin.
Afib - paroxysmal.
- Atrial fibrillation, V paced
- Continue amiodarone and Eliquis.
- [id number] VASC score is 5.
PPM - DC [employer] device.
- Stable, normal function, V paced.
- Follow-up at device clinic as scheduled.
Valvular heart disease - moderate , moderate MR, mild AR on echo 09/01/24.
- Continue diuresis as above.
- No need to repeat echo.
Acute Non-ischemic myocardial injury due to acute hypoxic resp failure/CHF
- peak trop 0.083
Physical Exam
Vital Signs/Labs
Vital Signs
Temp Pulse Resp BP Pulse Ox
98.2 F 88 18 116/64 98
11/06/24 11:23 11/06/24 11:23 11/06/24 11:23 11/06/24 11:23 11/06/24 11:23
11/05/24 11/06/24 11/07/24
06:59 06:59 06:59
Actual Weight 73.198 kg 72.348 kg
11/05/24 07:13
11/06/24 07:31
Magnesium 2.2 mg/dl (1.6-2.3) 11/06/24 07:31
10/29/24
17:17
Xve-[id number]-[id number] Pept > [id number]
Physical Exam
Constitutional: No acute distress and Comfortable
EENT: Anicteric
Cardiovascular: Rhythm/rate is irregular, Pedal edema present (1-2+), Systolic murmur present (Soft 2/6) and S1S2 is normal
Respiratory: Respiratory effort normal, Wheeze Present (Expiratory wheeze) and Rhonchi Present
GI: Soft
Neuro/Psych: AO x 3
Other: Skin (Warm, dry)
Data Reviewed
-
Date of Service: November 06, 2024
EKG: Tracing Personally Visualized and interpreted (Telemetry: A-fib, V paced)
Echo: Report Reviewed by me (EF 35-40%.)
Medical Tests (PFT, Pathology etc): Discussed with Patient
Labs: Labs Reviewed by me
--- NOTE | 2024-11-06 12:05 | W.DCSUMMARY ---
Discharge Summary
Discharge Data
Date of Admission: 10/29/24
Date of Discharge: 11/06/24
Total time spent discharging patient (in min): 38
-
Pending Results: No
Hospital Course
Patient 88 years old male with history of A-fib, hypertension, hyperlipidemia, pacemaker, CAD, cardiac valvulopathy, CHF (EF around 35 to 40%), came into the hospital with heart failure exacerbation. He has had multiple hospitalizations for heart
failure. Cardiology consulted. Patient has not been able to tolerate guideline directed medical therapy for heart failure due to hypotension and chronically on midodrine. Patient was diuresed with intravenous Lasix. He had negative balance from
this hospital stay. His weight upon admission was 75 kg and it went down to 72.3 kg. Cardiology recommended to switch to oral Lasix 80 mg p.o. daily and continue with his home cardiac medications. PT evaluated the patient and recommended home
health. We asked immigration case worker to see him prior to discharge. He has been given clear heart failure instructions upon discharge. He has been cleared by cardiology for discharge. He will be discharged in relatively stable condition today.
Discharge duration: 38 minutes
Discharge Plan
-
Patient Disposition: Home with Home Care
Discharge Diagnosis/Procedures: Acute on chronic systolic congestive heart failure. Hypotension. Paroxysmal atrial fibrillation. History of coronary artery disease.
Diet: Low Cholesterol, Low Sodium and Restrict fluids to 64 oz
Activity: As tolerated
Blood Work: Please PCP to order CBC, BMP within 1 week
Specialty Instructions: Weigh Daily- Call MD for wt gain/loss 3 lbs overnight/5 lbs in 1 week
Referrals:
Moni Rosenberg CRNP [Specified Professional Personl, Cardiology] - 11/12/24 10:00 am
Bettye Beltre DO [Family Provider, Family Practice] - in less than 1 week
Prescriptions:
New
furosemide [Lasix] 80 mg tablet
80 mg PO DAILY Qty: 30 0RF
Continued
amiodarone [Pacerone] 200 MG tablet
200 mg PO QPM
Eliquis 5 MG tablet
5 mg PO BID
atorvastatin 40 MG tablet
40 mg PO QPM Qty: 90 3RF
levothyroxine [Synthroid] 75 mcg Tablet
75 mcg PO DAILY
acetaminophen [Tylenol Extra Strength] 500 mg Tablet
500 mg PO DAILYPRN PRN (Reason: mild pain)
empagliflozin 25 mg Tablet
12.5 mg PO DAILY
therapeutic multivitamin Tablet
1 tab PO DAILY
fexofenadine 180 mg Tablet
180 mg PO DAILY PRN (Reason: allergies)
garlic 1,000 mg Capsule
1,000 mg PO DAILY
ascorbic acid (vitamin C) [Vitamin C] 500 mg Tablet
500 mg PO DAILY
ferrous sulfate [iron] 325 mg (65 mg iron) Tablet
325 mg PO QPM
folic acid 1 mg Tablet
1 mg PO QPM
vitamin E 268 mg (400 unit) Capsule
268 mg PO DAILY
grape seed extract 100 mg Capsule
100 mg PO DAILY
midodrine 10 mg Tablet
10 mg PO TID
Calcium 600 + D(3)
1 tab PO DAILY
Patient Comments:
10/29/2024, per pt., 600 mg of Calcium w/ 250 units of vitamin D3.
Triple Happy 3-6-9
1,000 mg PO BID
cyanocobalamin (vitamin B-12)
1 tab PO DAILY
Discontinued
furosemide 20 mg Tablet
20 mg PO BID
Discharge Orders:
Discharge Patient (As Directed); Ordered 11/06/24
Ordered By: Chintan Lombardo
Discharge Date and Time
Discharge Date/Time: 11/06/24 13:21
Print Language: KYRGYZ
--- NOTE | 2024-11-06 12:45 | CM ---
Patient stable for d/c today
PT rec home PT at this time, patient agreeable to referral to [facility].
Patient remains on 2L O2, confirmed that patient has continuous O2 at home. Supplier is [employer].
Patient currently has portable device in hospital. Spouse will transport home
IMM verbally reviewed, copy provided, copy on chart
Plan: Home w/ [facility]
== END 2024-11-06 13:21 | disposition home health service (06) | DRG 291 ==
LOC: 4 EAST ACU 19:30
PROVIDERS: Hospitalist; Internal Medicine; Physician Assistant Medical; ADMITTING PHYSICIAN Student in an Organized Health Care Education/Training Program; ATTENDING PHYSICIAN Hospitalist; EMERGENCY PHYSICIAN Emergency Medicine; FAMILY PHYSICIAN Family Medicine; OTHER PHYSICIAN Internal Medicine Cardiovascular Disease
DX: I11.0 Hypertensive heart disease with heart failure (principal); I50.23 Acute on chronic systolic (congestive) heart failure; J96.21 Acute and chronic respiratory failure with hypoxia; E03.9 Hypothyroidism, unspecified; E78.00 Pure hypercholesterolemia, unspecified; I48.0 Paroxysmal atrial fibrillation; I25.10 Atherosclerotic heart disease of native coronary artery without angina pectoris; I5A Non-ischemic myocardial injury (non-traumatic); I95.89 Other hypotension; I08.0 Rheumatic disorders of both mitral and aortic valves; D50.9 Iron deficiency anemia, unspecified; D63.8 Anemia in other chronic diseases classified elsewhere; R04.0 Epistaxis; I45.10 Unspecified right bundle-branch block; Z66 Do not resuscitate; Z96.641 Presence of right artificial hip joint; Z95.0 Presence of cardiac pacemaker; Z87.891 Personal history of nicotine dependence; Z95.5 Presence of coronary angioplasty implant and graft; Z88.5 Allergy status to narcotic agent; Z88.0 Allergy status to penicillin; Z88.8 Allergy status to other drugs, medicaments and biological substances; Z79.01 Long term (current) use of anticoagulants; Z79.84 Long term (current) use of oral hypoglycemic drugs; Z79.890 Hormone replacement therapy; Z99.81 Dependence on supplemental oxygen; Z82.49 Family history of ischemic heart disease and other diseases of the circulatory system
CPT/HCPCS: 71046; 71250; 80048; 80053; 82607; 82728; 82746; 83540; 83550; 83735; 83880; 84443; 84484; 85025; 85027; 93005; 94640; 96374; 97162; 97530; 99285

== ENCOUNTER → 2024-11-11 15:15 | Outpatient (REF) | payer MEDICARE, OTHER, SELFPAY ==
[2024-11-11 16:25] LABS: Hematocrit 24.6 % (39.0-52.0); Hemoglobin 8.0 g/dL (13.0-18.0); Mean Corp Hgb Conc. 32.5 g/dL (33.0-37.0); Mean Corpuscular Volume 95.3 fL (80.0-94.0); Nucleated Red Blood Cells % 0.3 % (-); Platelet Count 456 10^3/uL (130-400); Red Cell Dist. Width 16.5 % (11.5-14.5)
[2024-11-11 16:31] LABS: Blood Urea Nitrogen 42 mg/dl (9-20); Calcium 8.7 mg/dl (8.4-10.2); Carbon Dioxide 35 mmol/L (22-30); Chloride 91 mmol/L (98-107); Glucose 129 mg/dl (70-99); Potassium 3.4 mmol/L (3.5-5.1); Sodium 131 mmol/L (135-145); eGFR 53.17
== END ==
LOC: CLAB 15:15
PROVIDERS: ATTENDING PHYSICIAN Family Medicine
DX: I50.32 Chronic diastolic (congestive) heart failure (principal)
CPT/HCPCS: 36415; 80048; 85025

== ENCOUNTER → 2024-11-16 16:58 | Outpatient (REF) | payer MEDICARE, OTHER, SELFPAY ==
[2024-11-16 17:54] LABS: Hematocrit 25.5 % (39.0-52.0); Hemoglobin 8.2 g/dL (13.0-18.0); Mean Corp Hgb Conc. 32.2 g/dL (33.0-37.0); Mean Corpuscular Volume 95.5 fL (80.0-94.0); Nucleated Red Blood Cells % 0 % (-); Platelet Count 508 10^3/uL (130-400); Red Cell Dist. Width 17.3 % (11.5-14.5)
== END ==
LOC: CLAB 16:58
PROVIDERS: ATTENDING PHYSICIAN Family Medicine
DX: D64.9 Anemia, unspecified (principal)
CPT/HCPCS: 85025

== ENCOUNTER → 2024-11-20 16:36 | Outpatient (REF) | payer MEDICARE, OTHER, SELFPAY ==
[2024-11-20 17:15] LABS: Blood Urea Nitrogen 30 mg/dl (9-20); Calcium 8.4 mg/dl (8.4-10.2); Carbon Dioxide 33 mmol/L (22-30); Chloride 90 mmol/L (98-107); Glucose 82 mg/dl (70-99); Potassium 3.8 mmol/L (3.5-5.1); Sodium 130 mmol/L (135-145); eGFR 48.65
== END ==
LOC: CLAB 16:36
PROVIDERS: ATTENDING PHYSICIAN Internal Medicine Cardiovascular Disease; FAMILY PHYSICIAN Family Medicine
DX: I50.20 Unspecified systolic (congestive) heart failure (principal); E87.6 Hypokalemia
CPT/HCPCS: 36415; 80048; 83880

== ENCOUNTER → 2024-12-03 17:08 | Outpatient (REF) | payer MEDICARE, OTHER, SELFPAY ==
[2024-12-03 17:32] LABS: Iron 49 ug/dl (49-181)
[2024-12-03 17:41] LABS: Total Iron Binding Capacity 339 ug/dl (261-462)
[2024-12-03 18:08] LABS: Ferritin 81.3 ng/ml (17.9-464.0)
== END ==
LOC: CLAB 17:08
PROVIDERS: ATTENDING PHYSICIAN Internal Medicine Gastroenterology; FAMILY PHYSICIAN Family Medicine; OTHER PHYSICIAN Internal Medicine Hematology & Oncology
DX: D64.9 Anemia, unspecified (principal)
CPT/HCPCS: 36415; 82728; 83540; 83550

== ENCOUNTER → 2025-01-08 06:06 | Outpatient (REF) | payer MEDICARE, SELFPAY ==
[2025-01-08 09:58] LABS: Hematocrit 36.8 % (39.0-52.0); Hemoglobin 12.0 g/dL (13.0-18.0); Mean Corp Hgb Conc. 32.6 g/dL (33.0-37.0); Mean Corpuscular Volume 93.6 fL (80.0-94.0); Nucleated Red Blood Cells % 0 % (-); Platelet Count 317 10^3/uL (130-400); Red Cell Dist. Width 18.5 % (11.5-14.5)
[2025-01-08 10:24] LABS: Iron 139 ug/dl (49-181)
[2025-01-08 10:33] LABS: Total Iron Binding Capacity 327 ug/dl (261-462)
[2025-01-08 10:52] LABS: Ferritin 66.0 ng/ml (17.9-464.0)
== END ==
LOC: HWLAB 06:06
PROVIDERS: ATTENDING PHYSICIAN Nurse Practitioner Primary Care; FAMILY PHYSICIAN Family Medicine
DX: D64.9 Anemia, unspecified (principal); D50.9 Iron deficiency anemia, unspecified; D51.9 Vitamin B12 deficiency anemia, unspecified; D63.1 Anemia in chronic kidney disease; N18.30 Chronic kidney disease, stage 3 unspecified
CPT/HCPCS: 36415; 82728; 83540; 83550; 85025

== ENCOUNTER → 2025-01-22 06:33 | Outpatient (REF) | payer MEDICARE, SELFPAY ==
[2025-01-22 07:13] LABS: Hematocrit 37.9 % (39.0-52.0); Hemoglobin 12.4 g/dL (13.0-18.0); Mean Corp Hgb Conc. 32.7 g/dL (33.0-37.0); Mean Corpuscular Volume 92.9 fL (80.0-94.0); Nucleated Red Blood Cells % 0 % (-); Platelet Count 280 10^3/uL (130-400); Red Cell Dist. Width 18.4 % (11.5-14.5)
[2025-01-22 07:50] LABS: Iron 92 ug/dl (49-181)
[2025-01-22 07:59] LABS: Total Iron Binding Capacity 341 ug/dl (261-462)
[2025-01-22 09:03] LABS: Ferritin 65.2 ng/ml (17.9-464.0)
== END ==
LOC: REG 06:33
PROVIDERS: ATTENDING PHYSICIAN Nurse Practitioner Primary Care; FAMILY PHYSICIAN Family Medicine
DX: D64.9 Anemia, unspecified (principal); D50.9 Iron deficiency anemia, unspecified; D51.9 Vitamin B12 deficiency anemia, unspecified; D63.1 Anemia in chronic kidney disease; N18.30 Chronic kidney disease, stage 3 unspecified
CPT/HCPCS: 36415; 82728; 83540; 83550; 85025

== ENCOUNTER → 2025-02-18 06:09 | Outpatient (REF) | payer MEDICARE, OTHER, SELFPAY ==
[2025-02-18 10:14] LABS: Hematocrit 38.9 % (39.0-52.0); Hemoglobin 12.7 g/dL (13.0-18.0); Mean Corp Hgb Conc. 32.6 g/dL (33.0-37.0); Mean Corpuscular Volume 94.4 fL (80.0-94.0); Nucleated Red Blood Cells % 0 % (-); Platelet Count 303 10^3/uL (130-400); Red Cell Dist. Width 18.3 % (11.5-14.5)
== END ==
LOC: HWLAB 06:09
PROVIDERS: ATTENDING PHYSICIAN Nurse Practitioner Primary Care; FAMILY PHYSICIAN Family Medicine
DX: D64.9 Anemia, unspecified (principal); D50.9 Iron deficiency anemia, unspecified; D51.9 Vitamin B12 deficiency anemia, unspecified; D63.1 Anemia in chronic kidney disease; N18.30 Chronic kidney disease, stage 3 unspecified
CPT/HCPCS: 36415; 85025

== ENCOUNTER → 2025-03-18 06:06 | Outpatient (REF) | payer MEDICARE, OTHER, SELFPAY ==
[2025-03-18 10:34] LABS: Hematocrit 40.0 % (39.0-52.0); Hemoglobin 13.2 g/dL (13.0-18.0); Mean Corp Hgb Conc. 33.0 g/dL (33.0-37.0); Mean Corpuscular Volume 99.0 fL (80.0-94.0); Nucleated Red Blood Cells % 0 % (-); Platelet Count 276 10^3/uL (130-400); Red Cell Dist. Width 16.9 % (11.5-14.5)
== END ==
LOC: HWLAB 06:06
PROVIDERS: ATTENDING PHYSICIAN Nurse Practitioner Primary Care; FAMILY PHYSICIAN Family Medicine
DX: D64.9 Anemia, unspecified (principal); D50.9 Iron deficiency anemia, unspecified; D51.9 Vitamin B12 deficiency anemia, unspecified; N18.30 Chronic kidney disease, stage 3 unspecified; D63.1 Anemia in chronic kidney disease
CPT/HCPCS: 36415; 85025